=== PATIENT | female | born 1960 | race Caucasian/White ===

== ENCOUNTER 2017-11-11 22:37 | Day surgery (SDC) | payer MEDICAID, OTHER ==
[~2017-11-11] VITALS: Ht 170.2 cm; Wt 90.3 kg
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
--- OUTSIDE RECORDS SUMMARY | 2017-11-11 22:43 | XMS REPORT | Continuity of Care Document ---
Author Author [facility] Organization [facility] Address Unknown Phone Unavailable Allergies There is no data. Medications Medication Packaging Start Date Stop Date Route Dosage Sig metoprolol tartrate Tablet 2016 oral 1 tablet aspirin tablet,delayed release (DR/EC) 02/09/2017 oral 1 tablet Problems Date Dx Coded Attending Type Code Diagnosis Diagnosed By 02/18/2017 ROMERO BARTLETT D638 Anemia in other chronic diseases classified elsewhere 02/18/2017 ROMERO BARTLETT E119 Type 2 diabetes mellitus without complications 02/18/2017 ROMERO BARTLETT E8342 Hypomagnesemia 02/18/2017 ROMERO BARTLETT E876 Hypokalemia 02/18/2017 ROMERO BARTLETT [id number] Nicotine dependence, unspecified, in remission 02/18/2017 ROMERO BARTLETT G8929 Other chronic pain 02/18/2017 ROMERO BARTLETT I119 Hypertensive heart disease without heart failure 02/18/2017 ROMERO BARTLETT I214 Non -ST elevation (NSTEMI) myocardial infarction 02/18/2017 ROMERO BARTLETT 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 02/18/2017 ROMERO BARTLETT J449 Chronic obstructive pulmonary disease, unspecified 02/18/2017 ROMERO BARTLETT K219 Gastro-esophageal reflux disease without esophagitis 02/18/2017 ROMERO BARTLETT R079 Chest pain, unspecified 02/18/2017 ROMERO BARTLETT 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 02/18/2017 ROMERO BARTLETT [id number] Other alf (current) drug therapy 02/18/2017 ROMERO BARTLETT Z8674 Personal history of sudden cardiac arrest 02/18/2017 ROMERO BARTLETT Z9119 Patient's noncompliance w oth medical treatment and regimen 02/18/2017 ROMERO BARTLETT Z951 Presence of aortocoronary bypass graft 02/18/2017 ROMERO BARTLETT Z955 Presence of coronary angioplasty implant and graft Procedures Code Description Performed By Performed On [id number] 02/09/2017 Results Test Result Range CBC WITH PLATELET AND DIFFERENTIAL - 02/06/17 13:40 SEGS 64.1 % NRG *BASOPHILS 0.2 % NRG *EOSINOPHILS 2.4 % NRG AUTOMATED DIFF PERFORMED NRG *LYMPHOCYTES 26.3 % NRG *MONOCYTES 7.0 % NRG *ABSOLUTE BASOPHILS 0.00 10*3/uL 0.00-0.20 *ABSOLUTE EOSINOPHILS 0.20 10*3/uL 0.00-0.50 *ABSOLUTE LYMPHOCYTES 1.70 10*3/uL 1.00-3.00 *ABSOLUTE MONOCYTES 0.40 10*3/uL 0.30-1.00 *ABSOLUTE NEUTROPHILS 4.10 10*3/uL 1.80-7.80 MPV 8.5 fL 7.4-10.4 PLATELETS 235 10*3/uL 159-386 WBC 6.4 10*3/uL 3.6-11.2 RBC 3.59 3.63-4.92 HEMOGLOBIN 10.2 11.0-14.3 HEMATOCRIT 30.7 % 31.2-41.9 MCV 85.6 fL 79.0-98.0 MCH 28.4 pg 27.0-33.0 MCHC 33.2 32.0-36.0 RDW 17.8 % 12.3-17.0 RDWSD 52.9 37.1-47.8 COMPREHENSIVE METABOLIC PANEL - 02/06/17 13:40 BILIFUBIN TOTAL 0.30 0.20-1.00 TOTAL PROTEIN 7.1 6.4-8.2 ALBUMIN 3.0 3.4-5.0 *GLOBULIN 4.1 2.3-3.5 *A/G RATIO 0.7 1.5-2.2 ALK PHOS 118 U/L 46-116 ALT (SGPT) 13 U/L 16-63 AST (SGOT) 14 U/L 15-37 MAGNESIUM - 02/06/17 13:40 MAGNESIUM 1.7 1.8-2.4 TROPONIN-I - 02/06/17 13:40 TROPONIN-I 0.172 ng/mL 0.000-0.056 LIPASE - 02/06/17 13:40 LIPASE 135 U/L 73-393 GFR ESTIMATION - 02/06/17 13:40 *GFR EST NON AFR CHINESE 60 mL/min NRG *GRFA EST AFR AMER 70 mL/min NRG BNP - 02/06/17 13:40 B-TYPE NATRIURETIC PROTEIN 36 pg/mL 1-100 D-DIMER - 02/06/17 13:40 D-DIMER 0.53 mg{FEU}/L 0.00-0.50 PROTHROMBIN TIME - 02/06/17 13:40 *INR 1.00 0.90-1.10 *PROTHROMBIN TIME 10.7 s 9.4-11.5 PARTIAL THROMBOPLASTIN TIME - 02/06/17 13:40 PARTIAL THROMBOPLASTIN TIME 26.4 s 23.0-31.0 CK - 02/06/17 13:40 CK 94 U/L 26-192 GLUCOSE, METER - 02/06/17 16:45 GLUCOSE, METER 76 65-99 GLUCOSE, METER - 02/06/17 20:27 GLUCOSE, METER 138 65-99 PARTIAL THROMBOPLASTIN TIME - 02/06/17 21:03 PARTIAL THROMBOPLASTIN TIME 63.5 s 23.0-31.0 TROPONIN-I - 02/06/17 21:10 TROPONIN-I 0.176 ng/mL 0.000-0.056 CBC WITH PLATELET NO DIFFERENTIAL - 02/07/17 01:51 MPV 8.8 fL 7.4-10.4 PLATELETS 217 10*3/uL 159-386 WBC 5.9 10*3/uL 3.6-11.2 RBC 3.51 3.63-4.92 HEMOGLOBIN 9.9 11.0-14.3 HEMATOCRIT 30.6 % 31.2-41.9 MCV 87.1 fL 79.0-98.0 MCH 28.1 pg 27.0-33.0 MCHC 32.3 32.0-36.0 RDW 18.2 % 12.3-17.0 RDWSD 56.0 37.1-47.8 PARTIAL THROMBOPLASTIN TIME - 02/07/17 01:51 PARTIAL THROMBOPLASTIN TIME 40.6 s 23.0-31.0 HEMOGLOBIN A1C - 02/07/17 01:51 HEMOGLOBIN A1C 7.2 % 4.5-6.2 EST AVG. GLUCOSE - 02/07/17 01:51 EST AVG. GLUCOSE 159.9 g/dL NRG TROPONIN-I - 02/07/17 04:20 TROPONIN-I 0.205 ng/mL 0.000-0.056 LIPID PANEL W/ LDL DIRECT REFLEX - 02/07/17 04:20 TRIGLYCERIDES 116 0-149 CHOLESTEROL 155 50-199 HDL CHOLESTEROL 37 40-60 *LDL (CALCULATED) CHOL 95 0-99 BASIC METABOLIC PANEL - 02/07/17 04:20 SODIUM 138 mmol/L 136-145 POTASSIUM 3.7 mmol/L 3.5-5.1 CHLORIDE 100 mmol/L 98-107 TCO2 28.9 mmol/L 21.0-32.0 *ANION GAP 9.1 mmol/L 8.0-16.0 BUN 4 7-18 CREATININE 1.04 0.55-1.02 *BUN/CREATININE RATIO 3.8 9.1-17.0 GLUCOSE 118 65-99 CALCIUM 8.9 8.5-10.1 MAGNESIUM - 02/07/17 04:20 MAGNESIUM 1.7 1.8-2.4 GFR ESTIMATION - 02/07/17 04:20 *GFR EST NON AFR CHINESE 59 mL/min NRG *GRFA EST AFR AMER 69 mL/min NRG PARTIAL THROMBOPLASTIN TIME - 02/07/17 07:23 PARTIAL THROMBOPLASTIN TIME 68.6 s 23.0-31.0 TROPONIN-I - 02/07/17 07:23 TROPONIN-I 0.184 ng/mL 0.000-0.056 GLUCOSE, METER - 02/07/17 08:16 GLUCOSE, METER 137 65-99 GLUCOSE, METER - 02/07/17 16:51 GLUCOSE, METER 113 65-99 GLUCOSE, METER - 02/07/17 20:24 GLUCOSE, METER 141 65-99 CBC WITH PLATELET AND DIFFERENTIAL - 02/08/17 05:03 SEGS 48.1 % NRG *BASOPHILS 0.5 % NRG *EOSINOPHILS 4.2 % NRG AUTOMATED DIFF PERFORMED NRG *LYMPHOCYTES 40.3 % NRG *MONOCYTES 6.9 % NRG *ABSOLUTE BASOPHILS 0.00 10*3/uL 0.00-0.20 *ABSOLUTE EOSINOPHILS 0.20 10*3/uL 0.00-0.50 *ABSOLUTE LYMPHOCYTES 2.40 10*3/uL 1.00-3.00 *ABSOLUTE MONOCYTES 0.40 10*3/uL 0.30-1.00 *ABSOLUTE NEUTROPHILS 2.80 10*3/uL 1.80-7.80 MPV 8.6 fL 7.4-10.4 PLATELETS 240 10*3/uL 159-386 WBC 5.8 10*3/uL 3.6-11.2 RBC 3.26 3.63-4.92 HEMOGLOBIN 9.2 11.0-14.3 HEMATOCRIT 28.2 % 31.2-41.9 MCV 86.6 fL 79.0-98.0 MCH 28.4 pg 27.0-33.0 MCHC 32.8 32.0-36.0 RDW 18.3 % 12.3-17.0 RDWSD 55.6 37.1-47.8 MAGNESIUM - 02/08/17 05:03 MAGNESIUM 1.8 1.8-2.4 RENAL FUNCTION PANEL - 02/08/17 05:03 SODIUM 139 mmol/L 136-145 POTASSIUM 3.3 mmol/L 3.5-5.1 CHLORIDE 102 mmol/L 98-107 TCO2 28.4 mmol/L 21.0-32.0 *ANION GAP 8.6 mmol/L 8.0-16.0 BUN 5 7-18 CREATININE 1.02 0.55-1.02 *BUN/CREATININE RATIO 4.9 9.1-17.0 GLUCOSE 134 65-99 CALCIUM 8.9 8.5-10.1 ALBUMIN 2.7 3.4-5.0 PHOSPHORUS 4.2 2.6-4.7 TROPONIN-I - 02/08/17 05:03 TROPONIN-I 0.128 ng/mL 0.000-0.056 CK - 02/08/17 05:03 CK 54 U/L 26-192 GFR ESTIMATION - 02/08/17 05:03 *GFR EST NON AFR CHINESE 61 mL/min NRG *GRFA EST AFR AMER 70 mL/min NRG PARTIAL THROMBOPLASTIN TIME - 02/08/17 05:04 PARTIAL THROMBOPLASTIN TIME 50.9 s 23.0-31.0 GLUCOSE, METER - 02/08/17 07:33 GLUCOSE, METER 141 65-99 GLUCOSE, METER - 02/08/17 11:40 GLUCOSE, METER 138 65-99 GLUCOSE, METER - 02/08/17 16:30 GLUCOSE, METER 122 65-99 GLUCOSE, METER - 02/08/17 20:19 GLUCOSE, METER 145 65-99 PARTIAL THROMBOPLASTIN TIME - 02/09/17 05:11 PARTIAL THROMBOPLASTIN TIME 46.5 s 23.0-31.0 BASIC METABOLIC PANEL - 02/09/17 05:11 SODIUM 141 mmol/L 136-145 POTASSIUM 3.8 mmol/L 3.5-5.1 CHLORIDE 105 mmol/L 98-107 TCO2 26.0 mmol/L 21.0-32.0 *ANION GAP 10.0 mmol/L 8.0-16.0 BUN 8 7-18 CREATININE 1.14 0.55-1.02 *BUN/CREATININE RATIO 7.0 9.1-17.0 GLUCOSE 87 65-99 CALCIUM 9.4 8.5-10.1 GFR ESTIMATION - 02/09/17 05:11 *GFR EST NON AFR CHINESE 53 mL/min NRG *GRFA EST AFR AMER 62 mL/min NRG GLUCOSE, METER - 02/09/17 07:52 GLUCOSE, METER 112 65-99 ACTIVATED CLOTTING TIME - 02/09/17 08:36 ACTIVATED CLOTTING TIME 122 s NRG GLUCOSE, METER - 02/09/17 11:38 GLUCOSE, METER 98 65-99 Encounters ACCT No. Visit Date/Time Discharge Status Pt. Type Provider Facility Loc./Unit Complaint [id number] 02/06/2017 15:40:00 02/09/2017 15:41:55 DIS Outpatient ROMERO BARTLETT <PV2.3.2>Chest pain, unspecified</PV2.3.2><PV2.3.2>CHEST PAIN</ PV2.3.2><PV2.3.2>Non-ST elevation (NSTEMI) myocardial infarction</PV2.3.2>< PV2.3.2>Athscl heart disease of [place] coronary artery w/o ang pctrs</PV2.3.2>< PV2.3.2>Presence of aortocoronary bypass graft</PV2.3.2><PV2.3.2>Presence of coronary angioplasty implant and graft</PV2.3.2><PV2.3.2>Hypertensive heart disease without heart failure</PV2.3.2><PV2.3.2>Type 2 diabetes mellitus without complications</PV2.3.2><PV2.3.2>Chronic obstructive pulmonary disease, unspecified</PV2.3.2><PV2.3.2>Nicotine dependence, unspecified, in remission</ PV2.3.2><PV2.3.2>Patient's noncompliance w ot medical treatment and regimen< /PV2.3.2><PV2.3.2>Other chronic pain</PV2.3.2><PV2.3.2>Personal history of sudden cardiac arrest</PV2.3.2><PV2.3.2>Gastro-esophageal reflux disease without esophagitis</PV2.3.2><PV2.3.2>Anemia in other chronic diseases classified elsewhere</PV2.3.2><PV2.3.2>Hypokalemia</PV2.3.2><PV2.3.2> Hypomagnesemia</PV2.3.2><PV2.3.2>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
[2017-11-11] MEDS ORDERED: CARB100C2 PO (22:51)
[2017-11-11] MEDS ORDERED: GLIP5TAB13 PO (22:51)
[2017-11-11] MEDS ORDERED: CLOP75TA69 PO (22:51)
[2017-11-11] MEDS ORDERED: FLEXERAL (22:51)
[2017-11-11] MEDS ORDERED: PROMETHAZINE INJ 25 MG/ML (PHENERGAN) AMP IVP STA (22:54)
[2017-11-11] MEDS ORDERED: morphine INJ 10 MG/ML 1ML (SYR OR VIAL) IVP STA (22:54)
[2017-11-11 22:59] LABS: BASOPHILS % (AUTO) 0 % (0-10); EOSINOPHILS # (AUTO) 0.3 10^3/uL (0.0-0.3); EOSINOPHILS % (AUTO) 4 % (0-10); HEMATOCRIT 35 % (35-52); HEMOGLOBIN 12.1 G/DL (11.5-16.0); LYMPHOCYTES # (AUTO) 2.5 X 10^3 (1.0-4.0); LYMPHOCYTES % (AUTO) 34 % (12-44); MEAN CORPUSCULAR HEMOGLOBIN 33 PG (25-34); MEAN CORPUSCULAR HGB CONC 34 G/DL (32-36); MEAN CORPUSCULAR VOLUME 95 FL (80-99); MEAN PLATELET VOLUME 9.9 FL (7.4-10.4); MONOCYTES # (AUTO) 0.6 X 10^3 (0.0-1.0); MONOCYTES % (AUTO) 8 % (0-12); NEUTROPHILS # (AUTO) 4.1 X 10^3 (1.8-7.8); NEUTROPHILS % (AUTO) 55 % (42-75); PLATELET COUNT 238 10^3/uL (130-400); RED BLOOD COUNT 3.72 10^6/uL (4.35-5.85); RED CELL DISTRIBUTION WIDTH 14.7 % (10.0-14.5); WHITE BLOOD COUNT 7.5 10^3/uL (4.3-11.0)
[2017-11-11 23:11] LABS: INR 0.9 (0.8-1.4); PROTHROMBIN TIME PATIENT 12.2 SEC (12.2-14.7)
[2017-11-11 23:20] LABS: ALANINE AMINOTRANSFERASE 21 U/L (0-55); ALBUMIN 3.5 GM/DL (3.2-4.5); ALKALINE PHOSPHATASE 121 U/L (40-136); BILIRUBIN,TOTAL 0.2 MG/DL (0.1-1.0); BUN/CREATININE RATIO 7; CARBON DIOXIDE 22 MMOL/L (21-32); CHLORIDE 107 MMOL/L (98-107); CREATININE SERUM 0.83 MG/DL (0.60-1.30); GFR ESTIMATED > 60; GLUCOSE 144 MG/DL (70-105); MAGNESIUM 2.1 MG/DL (1.8-2.4); POTASSIUM 3.6 MMOL/L (3.6-5.0); SODIUM 138 MMOL/L (135-145); TOTAL PROTEIN 6.1 GM/DL (6.4-8.2)
[2017-11-11] MEDS ORDERED: HYDROmorphone 2 MG/ML VIAL (DILAUDID) IV STA (23:36)
--- NOTE | 2017-11-11 23:53 | ED Chest Pain ---
General Chief Complaint: Chest Pain Stated Complaint: CP X 4 DAYS, HX STENTS PLACED/OPEN HEART SURG Nursing Triage Note: chest pain x4 days Nursing Sepsis Screen: No Definite Risk Source: patient Exam Limitations: no limitations History of Present Illness Date Seen by Provider: Nov 11, 2017 Time Seen by Provider: 22:44 Initial Comments Here with severe central chest pain that has been going on for 4 days intermittently but persistent tonight. She apparently was on her way to [facility] to see her daughter and came here do to pain being so significant on her [place]. Normally seen in [facility] and [place] for her chest problems. States this feels like previous heart attacks. Reports that she's had 16 stents and triple bypass and that this is how the pain typically is. She has been using her nitroglycerin with some improvement over the last 4 days but that did not work tonight. She reports that she has a significant headache tonight due to nitroglycerin. Reports nausea but no vomiting and no central chest pain that radiates to the left arm and left leg. Timing/Duration: 3-4 days Severity/Quality: moderate, severe Location: central Radiation: arms Activities at Onset: none Prior CP/Workup: cardiac cath, heart attack Modifying Factors: improves with nitroglycerin ASA po UPPER AND BOTTOM LACER HAND: No NTG SL UPPER AND BOTTOM LACER HAND: Yes Associated Symptoms: abdominal pain, diaphoresis, edema, fatigue, nausea/ vomiting; No weakness Allergies and Home Medications Allergies Coded Allergies: Sulfa (Sulfonamide Antibiotics) (Verified Allergy, Unknown, 11/11/17) haloperidol (Verified Allergy, Unknown, 11/11/17) ketorolac (Verified Allergy, Unknown, 11/11/17) metoclopramide (Verified Allergy, Unknown, 11/11/17) ondansetron (Verified Allergy, Unknown, 11/11/17) prochlorperazine (Verified Allergy, Unknown, 11/11/17) sumatriptan (Verified Allergy, Unknown, 11/11/17) Home Medications Clopidogrel Bisulfate 75 Mg Tablet, Unknown Dose PO DAILY, (Reported) Patient Home Medication List Home Medication List Reviewed: Yes Review of Systems Review of Systems Constitutional: see HPI, chills, fever EENTM: No Symptoms Reported Respiratory: No Symptoms Reported Cardiovascular: See HPI, Chest Pain, Edema Gastrointestinal: See HPI Genitourinary: No Symptoms Reported Musculoskeletal: see HPI, muscle pain; No muscle weakness Skin: no symptoms reported Psychiatric/Neurological: Anxiety, Headache All Other Systems Reviewed Negative Unless Noted: Yes Past Ktemqkz-Lejjqm-Tclaor Hx Past Med/Social Hx: Reviewed Nursing Past Med/Soc Hx Patient Social History Alcohol Use: Denies Use Recreational Drug Use: No Smoking Status: Current Someday Smoker Type Used: Cigarettes 2nd Hand Smoke Exposure: Yes Recent Foreign Travel: No Contact w/Someone Who Travel: No Recent Infectious Disease Expo: No Recent Hopitalizations: No Immunizations Up To Date Tetanus Booster (TDap): Unknown Seasonal Allergies Seasonal Allergies: No Past Medical History Surgeries: Yes CABG, Gallbladder, Hysterectomy Respiratory: Yes Asthma, COPD Cardiac: Yes Heart Attack, High Cholesterol, Hypertension Neurological: Yes Headaches /Migraines 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 oz. 77.255730uk; BMI Method:Stated General Appearance: WD/WN, Moderate Distress HEENT: PERRL/EOMI, Pharynx Normal Neck: Non Tender, Supple Respiratory: Lungs Clear, Normal Breath Sounds Cardiovascular: Regular Rate, Rhythm, No Murmur Gastrointestinal: Non Tender, Soft Extremity: Normal Range of Motion, Non Tender Neurologic/Psychiatric: Alert, Oriented x3 Skin: Normal Color, Warm/Dry Progress/Results/Core Measures Results/Orders Lab Results Laboratory Tests Test 11/11/17 22:45 Range/Units White Blood Count 7.5 4.3-11.0 10^3/uL Red Blood Count 3.72 L 4.35-5.85 10^6/uL Hemoglobin 12.1 11.5-16.0 G/DL Hematocrit 35 35-52 % Mean Corpuscular Volume 95 80-99 FL Mean Corpuscular Hemoglobin 33 25-34 PG Mean Corpuscular Hemoglobin Concent 34 32-36 G/DL Red Cell Distribution Width 14.7 H 10.0-14.5 % Platelet Count 238 130-400 10^3/uL Mean Platelet Volume 9.9 7.4-10.4 FL Neutrophils (%) (Auto) 55 42-75 % Lymphocytes (%) (Auto) 34 12-44 % Monocytes (%) (Auto) 8 0-12 % Eosinophils (%) (Auto) 4 0-10 % Basophils (%) (Auto) 0 0-10 % Neutrophils # (Auto) 4.1 1.8-7.8 X 10^3 Lymphocytes # (Auto) 2.5 1.0-4.0 X 10^3 Monocytes # (Auto) 0.6 0.0-1.0 X 10^3 Eosinophils # (Auto) 0.3 0.0-0.3 10^3/uL Basophils # (Auto) 0.0 0.0-0.1 10^3/uL Prothrombin Time 12.2 12.2-14.7 SEC INR Comment 0.9 0.8-1.4 Activated Partial Thromboplast Time 32 24-35 SEC Sodium Level 138 135-145 MMOL/L Potassium Level 3.6 3.6-5.0 MMOL/L Chloride Level 107 98-107 MMOL/L Carbon Dioxide Level 22 21-32 MMOL/L Anion Gap 9 5-14 MMOL/L Blood Urea Nitrogen 6 L 7-18 MG/DL Creatinine 0.83 0.60-1.30 MG/DL Estimat Glomerular Filtration Rate > 60 BUN/Creatinine Ratio 7 Glucose Level 144 H 70-105 MG/DL Calcium Level 9.0 8.5-10.1 MG/DL Corrected Calcium 9.4 8.5-10.1 MG/DL Magnesium Level 2.1 1.8-2.4 MG/DL Total Bilirubin 0.2 0.1-1.0 MG/DL Aspartate Amino Transf (AST/SGOT) 23 5-34 U/L Alanine Aminotransferase (ALT/SGPT) 21 0-55 U/L Alkaline Phosphatase 121 40-136 U/L Myoglobin 28.0 10.0-92.0 NG/ML Troponin I < 0.30 <0.30 NG/ML Total Protein 6.1 L 6.4-8.2 GM/DL Albumin 3.5 3.2-4.5 GM/DL My Orders Orders - JOVI VELASQUEZ MD Cbc With Automated Diff (11/11/17 22:44) Magnesium (11/11/17 22:44) Chest 1 View, Ap/Pa Only (11/11/17 22:44) Ekg Tracing (11/11/17 22:44) Cardiac Profile 1 (11/11/17 22:44) Comprehensive Metabolic Panel (11/11/17 22:44) Myoglobin Serum (11/11/17 22:44) Protime With Inr (11/11/17 22:44) Partial Thromboplastin Time (11/11/17 22:44) O2 (11/11/17 22:44) Monitor-Rhythm Ecg Trace Only (11/11/17 22:44) Lipid Panel (11/12/17 06:00) Saline Lock/Iv-Start (11/11/17 22:44) Morphine Injection (Morphine Injection (11/11/17 22:54) Promethazine Injection (Phenergan Injec (11/11/17 22:54) Hydromorphone Injection (Dilaudid Inject (11/11/17 23:36) Morphine Injection (Morphine Injection (11/12/17 00:24) Aspirin Chewable Tablet (Baby Aspirin Ch (11/12/17 00:28) Vital Signs/I&O 11/11/17 11/11/17 11/11/17 22:45 22:45 22:45 Temp 98.0 Pulse 85 Resp 25 B/P (MAP) 155/89 (111) Pulse Ox 100 100 O2 Delivery Nasal Cannula Nasal Cannula Nasal Cannula O2 Flow Rate 2.0 2.0 2.00 Blood Pressure Mean: 111 Progress Progress Note : Progress Note Seen and evaluated. IV, labs, EKG and chest x-ray ordered. Morphine 5 mg IV and Phenergan 25 mg IV ordered. This did not help her pain. Dilaudid 1 mg IV ordered. 2355: Pain still not improved. Labs do not show any significant findings. Patient will likely need administration due to persistent history. Review of outside medications reveals that the patient does take hydrocodone 10/ 325 for times daily and has for the past couple of months. Monitor patient. 0020: Patient still with pain. Given her history, patient will require admission. I did discuss the case with Dr. Mancuso and he agrees to see her in consult. 0025: I did discuss the case with Dr. TORRE and he accepts patient for admission. We have ordered morphine 5 mg IV for pain. We have reviewed her allergies and it appears that she can take aspirin so we will give that to her now in dose of 324 mg by mouth. Admit, observation status. Patient and family agree with plan. Initial ECG Impression Date: Nov 11, 2017 Initial ECG Impression Time: 22:45 Initial ECG Rate: 80 Initial ECG Rhythm: Normal Sinus Comment Sinus rhythm with right bundle branch block. No evidence of ST elevation GA. Normal axis. No previous available for comparison. Interpreted by me. Diagnostic Imaging Diagonstic Imaging: Xray Plain Films/CT/US/NM/MRI: chest Comments No acute findings on portable 1 view x-ray Reviewed: Reviewed by Me Departure Communication (Admissions) Time/Spoke to Admitting Phy: 00:20 Impression Primary Impression: Chest pain Qualified Codes: R07.9 - Chest pain, unspecified Disposition: ADMITTED INPATIENT Condition: Stable Admissions Decision to Admit Reason: Admit from ER (General) Decision to Admit/Date: Nov 12, 2017 Time/Decision to Admit Time: 00:20 Departure-Patient Inst. Referrals: NO,LOCAL PHYSICIAN (PCP/Family) Primary Care Physician JOVI VELASQUEZ MD Nov 11, 2017 23:53
[2017-11-12] VITALS (27 sets, daily range): BP systolic 77–157; BP diastolic 56–107
[2017-11-12] MEDS ORDERED: morphine INJ 10 MG/ML 1ML (SYR OR VIAL) IVP STA (00:24)
[2017-11-12] MEDS ORDERED: ASPIRIN 81 MG CHEW (CHILDREN'S ASA) PO STA (00:28)
--- OUTSIDE RECORDS SUMMARY | 2017-11-12 00:45 | XMS REPORT | Continuity of Care Document ---
Author Author [facility] Organization [facility] Address Unknown Phone Unavailable Allergies There is [...] ROMERO BARTLETT E876 Hypokalemia 02/18/2017 ROMERO BARTLETT [id number] Nicotine dependence, unspecified, in remission 02/18/2017 ROMERO BARTLETT [id number] Other chronic pain 02/18/2017 ROMERO BARTLETT I119 Hypertensive heart disease without heart failure 02/18/2017 ROMERO BARTLETT I214 Non -ST elevation (NSTEMI) myocardial infarction 02/18/2017 ROMERO BARTLETT I2510 Athscl heart disease of [place] coronary artery w/o ang pctrs 02/18/2017 ROMERO BARTLETT J449 Chronic obstructive pulmonary disease, unspecified 02/18/2017 ROMERO BARTLETT K219 Gastro-esophageal reflux disease without esophagitis 02/18/2017 ROMERO BARTLETT R079 Chest pain, unspecified 02/18/2017 ROMERO BARTLETT [id number] long term care social worker (current) use of antithrombotics/antiplatelets 02/18/2017 ROMERO BARTLETT [id number] Other long-term (current) drug therapy 02/18/2017 ROMERO BARTLETT Z8674 Personal history of sudden cardiac arrest 02/18/2017 ROMERO BARTLETT Z9119 Patient's noncompliance w oth medical treatment and regimen 02/18/2017 ROMERO BARTLETT Z951 Presence of aortocoronary bypass graft 02/18/2017 ROMERO BARTLETT Z955 Presence of coronary angioplasty implant and graft Procedures Code Description Performed By Performed On [id number] 02/09/2017 Results Test Result Range CBC WITH [...] - 02/06/17 13:40 *GFR EST NON AFR [place] 60 mL/min NRG *GRFA EST AFR AMER [...] - 02/07/17 04:20 *GFR EST NON AFR [place] 59 mL/min NRG *GRFA EST AFR AMER [...] - 02/08/17 05:03 *GFR EST NON AFR [place] 61 mL/min NRG *GRFA EST AFR AMER [...] *ANION GAP 10.0 mmol/L 8.0-16.0 BUN 8 718 CREATININE 1.14 0.55-1.02 *BUN/CREATININE RATIO 7.0 9.1-17.0 GLUCOSE 87 65-99 CALCIUM 9.4 8.5-10.1 GFR ESTIMATION - 02/09/17 05:11 *GFR EST NON AFR [place] 53 mL/min NRG *GRFA EST AFR AMER 62 mL/min NRG GLUCOSE, METER - 02/09/17 07:52 GLUCOSE, METER 112 65-99 ACTIVATED CLOTTING TIME - 02/09/17 08:36 ACTIVATED CLOTTING TIME 122 s NRG GLUCOSE, METER - 02/09/17 11:38 GLUCOSE, METER 98 65-99 Complete blood count (CBC) with automated white blood cell (WBC) differential - 11/11/17 22:45 Blood leukocytes automated count (number/volume) 7.5 10*3/uL 4.3-11.0 Blood erythrocytes automated count (number/volume) 3.72 10*6/uL 4.35-5.85 Venous blood hemoglobin measurement (mass/volume) 12.1 g/dL 11.5-16.0 Blood hematocrit (volume fraction) 35 % 35-52 Automated erythrocyte mean corpuscular volume 95 [foz_us] 80-99 Automated erythrocyte mean corpuscular hemoglobin (mass per erythrocyte) 33 pg 25-34 Automated erythrocyte mean corpuscular hemoglobin concentration measurement ( mass/volume) 34 g/dL 32-36 Automated erythrocyte distribution width ratio 14.7 % 10.0-14.5 Automated blood platelet count (count/volume) 238 10*3/uL 130-400 Automated blood platelet mean volume measurement 9.9 [foz_us] 7.4-10.4 Automated blood neutrophils/100 leukocytes 55 % 42-75 Automated blood lymphocytes/100 leukocytes 34 % 12-44 Blood monocytes/100 leukocytes 8 % 0-12 Automated blood eosinophils/100 leukocytes 4 % 0-10 Automated blood basophils/100 leukocytes 0 % 0-10 Blood neutrophils automated count (number/volume) 4.1 10*3 1.8-7.8 Blood lymphocytes automated count (number/volume) 2.5 10*3 1.0-4.0 Blood monocytes automated count (number/volume) 0.6 10*3 0.0-1.0 Automated eosinophil count 0.3 10*3/uL 0.0-0.3 Automated blood basophil count (count/volume) 0.0 10*3/uL 0.0-0.1 PT panel in platelet poor plasma by coagulation assay - 11/11/17 22:45 Prothrombin time (PT) in platelet poor plasma by coagulation assay 12.2 s 12.2-14.7 INR in platelet poor plasma or blood by coagulation assay 0.9 0.8-1.4 Activated partial thromboplastin time (aPTT) in platelet poor plasma bycoagulation assay - 11/11/17 22:45 Activated partial thromboplastin time (aPTT) in platelet poor plasma bycoagulation assay 32 s 24-35 Comprehensive metabolic panel - 11/11/17 22:45 Serum or plasma sodium measurement (moles/volume) 138 mmol/L 135-145 Serum or plasma potassium measurement (moles/volume) 3.6 mmol/L 3.6-5.0 Serum or plasma chloride measurement (moles/volume) 107 mmol/L 98-107 Carbon dioxide 22 mmol/L 21-32 Serum or plasma anion gap determination (moles/volume) 9 mmol/L 5-14 Serum or plasma urea nitrogen measurement (mass/volume) 6 mg/dL 7-18 Serum or plasma creatinine measurement (mass/volume) 0.83 mg/dL 0.60-1.30 Serum or plasma urea nitrogen/creatinine mass ratio 7 NRG Serum or plasma creatinine measurement with calculation of estimated glomerular filtration rate > NRG Serum or plasma glucose measurement (mass/volume) 144 mg/dL 70-105 Serum or plasma calcium measurement (mass/volume) 9.0 mg/dL 8.5-10.1 Serum or plasma total bilirubin measurement (mass/volume) 0.2 mg/dL 0.1-1.0 Serum or plasma alkaline phosphatase measurement (enzymatic activity/volume) 121 U/L 40-136 Serum or plasma aspartate aminotransferase measurement (enzymatic activity/ volume) 23 U/L 5-34 Serum or plasma alanine aminotransferase measurement (enzymatic activity/volume ) 21 U/L 0-55 Serum or plasma protein measurement (mass/volume) 6.1 g/dL 6.4-8.2 Serum or plasma albumin measurement (mass/volume) 3.5 g/dL 3.2-4.5 CALCIUM CORRECTED 9.4 mg/dL 8.5-10.1 Magnesium - 11/11/17 22:45 Magnesium 2.1 mg/dL 1.8-2.4 Serum or plasma troponin i.cardiac measurement (mass/volume) - 11/11/17 22:45 Serum or plasma troponin i.cardiac measurement (mass/volume) < ng/ mL <0.30 Myoglobin, serum - 11/11/17 22:45 Myoglobin, serum 28.0 ng/mL 10.0-92.0 Encounters ACCT No. Visit Date/Time Discharge Status Pt. Type Provider Facility Loc./Unit Complaint [id number] 02/06/2017 15:40:00 02/09/2017 15:41:55 DIS Outpatient ROMERO BARTLETT <PV2.3.2>Chest pain, unspecified</PV2.3.2><PV2.3.2>CHEST PAIN</ PV2.3.2><PV2.3.2>Non-ST elevation (NSTEMI) myocardial infarction</PV2.3.2>< PV2.3.2>Athscl heart disease of [place] coronary artery w/o ang pctrs</PV2.3.2>< PV2.3.2>Presence of aortocoronary bypass graft</PV2.3.2><PV2.3.2>Presence of coronary angioplasty implant and graft</PV2.3.2><PV2.3.2>Hypertensive heart disease without heart failure</PV2.3.2><PV2.3.2>Type 2 diabetes mellitus without complications</PV2.3.2><PV2.3.2>Chronic obstructive pulmonary disease, unspecified</PV2.3.2><PV2.3.2>Nicotine dependence, unspecified, in remission</ PV2.3.2><PV2.3.2>Patient's noncompliance w oth medical treatment and regimen< /PV2.3.2><PV2.3.2>Other chronic pain</PV2.3.2><PV2.3.2>Personal history of sudden cardiac arrest</PV2.3.2><PV2.3.2>Gastro-esophageal reflux disease without esophagitis</PV2.3.2><PV2.3.2>Anemia in other chronic diseases classified elsewhere</PV2.3.2><PV2.3.2>Hypokalemia</PV2.3.2><PV2.3.2> Hypomagnesemia</PV2.3.2><PV2.3.2>Other exterminator termite (current) drug therapy</PV2.3.2 ><PV2.3.2>long term care social worker (current) use of antithrombotics/antiplatelets</PV2.3.2> [id number] 11/11/2017 23:01:00 Document Registration
[2017-11-12] MEDS ORDERED: PROMETHAZINE INJ 25 MG/ML (PHENERGAN) AMP IV PRN (02:15)
[2017-11-12] MEDS ORDERED: RT-ALBUTEROL/IPRATROPIUM 3 ML (DUONEB) VIAL INH PRN (02:15)
[2017-11-12] MEDS ORDERED: NS IV 1000 ML 1,000 ML IV SCH ×2 (02:15→17:55)
[2017-11-12] MEDS ORDERED: CATHETER FLUSH 10 ML SYR IV PRN (02:30)
[2017-11-12] MEDS ORDERED: NITROGLYCERIN 0.4 MG SL TABS BTL 25'S SL PRN (02:30)
[2017-11-12] MEDS: morphine INJ 10 MG/ML 1ML (SYR OR VIAL) IV PRN ×3 (02:33→08:22)
[2017-11-12] MEDS: CATHETER FLUSH 10 ML SYR IV SCH ×2 (04:30→14:00)
[2017-11-12 05:13] LABS: BASOPHILS % (AUTO) 1 % (0-10); EOSINOPHILS # (AUTO) 0.3 10^3/uL (0.0-0.3); EOSINOPHILS % (AUTO) 5 % (0-10); HEMATOCRIT 34 % (35-52); HEMOGLOBIN 11.5 G/DL (11.5-16.0); LYMPHOCYTES # (AUTO) 2.1 X 10^3 (1.0-4.0); LYMPHOCYTES % (AUTO) 39 % (12-44); MEAN CORPUSCULAR HEMOGLOBIN 33 PG (25-34); MEAN CORPUSCULAR HGB CONC 34 G/DL (32-36); MEAN CORPUSCULAR VOLUME 95 FL (80-99); MONOCYTES # (AUTO) 0.5 X 10^3 (0.0-1.0); MONOCYTES % (AUTO) 9 % (0-12); NEUTROPHILS # (AUTO) 2.6 X 10^3 (1.8-7.8); NEUTROPHILS % (AUTO) 47 % (42-75); PLATELET COUNT 203 10^3/uL (130-400); RED BLOOD COUNT 3.51 10^6/uL (4.35-5.85); RED CELL DISTRIBUTION WIDTH 14.3 % (10.0-14.5); WHITE BLOOD COUNT 5.5 10^3/uL (4.3-11.0)
[2017-11-12 05:41] LABS: ALANINE AMINOTRANSFERASE 23 U/L (0-55); ALBUMIN 3.3 GM/DL (3.2-4.5); ALKALINE PHOSPHATASE 121 U/L (40-136); BILIRUBIN,TOTAL 0.2 MG/DL (0.1-1.0); BUN/CREATININE RATIO 6; CALCIUM 8.8 MG/DL (8.5-10.1); CARBON DIOXIDE 22 MMOL/L (21-32); CHLORIDE 111 MMOL/L (98-107); CREATININE SERUM 0.78 MG/DL (0.60-1.30); GFR ESTIMATED > 60; GLUCOSE 119 MG/DL (70-105); SODIUM 141 MMOL/L (135-145); TOTAL PROTEIN 5.8 GM/DL (6.4-8.2)
[2017-11-12 05:42] LABS: CHOLESTEROL 224 MG/DL (< 200); HDL CHOLESTEROL 27 MG/DL (40-60); TRIGLYCERIDES 456 MG/DL (<150); VLDL CHOLESTEROL 91 MG/DL (5-40)
[2017-11-12] MEDS: inSUlin ASPART (NovoLOG) 1 UNIT/0.01 ML (CHARGE PER UNIT) SC SCH ×3 (05:46→14:48)
[2017-11-12] MEDS ORDERED: LORATADINE (CLARITIN) 10 MG TAB PO SCH (07:30)
--- NOTE | 2017-11-12 07:50 | History & Physical-Hospitalist ---
History of Present Illness HPI/Chief Complaint Pt is a 57yoCF with a PMH CAD s/p CABG, DM, COPD, and CHF who presented to ER with CC of chest pain. She is a very poor historian and is falling asleep in the middle of our conversation multiple times. She states her pain started 4 days ago and she decided to stop her as she was driving through town to visit her daughter out of town. She states her pain is in her chest and radiating down her left arm, up both sides of her neck down her back and down her left leg. She states her pain is a 10/10 but quickly falls asleep again after telling me that. She describes her chest pain as a heaviness that makes it hard to breath. She states she is allergic to the medicine for a stress test and has only been able to have caths in the past. Source: patient Date Seen 11/12/17 Time Seen by a Provider: 07:51 Attending Physician Dwight Fernandes MD PCP No,Local Physician Referring Physician Date of Admission Nov 12, 2017 at 00:28 Home Medications & Allergies Home Medications Reviewed patient Home Medication Reconciliation performed by pharmacy medication reconciliations biodiesel production technician and/or nursing. Patients Allergies have been reviewed. Allergies Allergies Coded Allergies Sulfa (Sulfonamide Antibiotics) (Verified Allergy, Unknown, 11/11/17) haloperidol (Verified Allergy, Unknown, 11/11/17) ketorolac (Verified Allergy, Unknown, 11/11/17) metoclopramide (Verified Allergy, Unknown, 11/11/17) ondansetron (Verified Allergy, Unknown, 11/11/17) prochlorperazine (Verified Allergy, Unknown, 11/11/17) sumatriptan (Verified Allergy, Unknown, 11/11/17) Past Vjzsezm-Xeqhza-Wzjxkd Hx Past Med/Social Hx: Reviewed Nursing Past Med/Soc Hx Patient Social History Alcohol Use: Rarely Uses Number of Drinks Today: 0 Recreational Drug Use: No Smoking Status: Current Everyday Smoker Cigaretts per day: 10 Type Used: Cigarettes 2nd Hand Smoke Exposure: Yes Physical Abuse Screen: No Sexual Abuse: No Recent Foreign Travel: No Contact w/other who traveled: No Recent Hopitalizations: No Recent Infectious Disease Expo: No Immunizations Up To Date Tetanus Booster (TDap): Unknown Pediatric: No Date of Pneumonia Vaccine: Nov 12, 2012 Seasonal Allergies Seasonal Allergies: Yes Past Medical History Surgeries: Abdominal, CABG, Coronary Stent, Gallbladder, Hysterectomy Respiratory: COPD Cardiac: Cardiomyopathy, Coronary Artery Disease, Heart Attack, High Cholesterol, Hypertension Neurological: Headaches /Migraines Hysterectomy Gastrointestinal: Gastroesophageal Reflux Musculoskeletal: Fibromyalgia, Chronic Back Pain Endocrine: Diabetes, Non-Insulin dep Psychosocial: Sleep Difficulties, Anxiety History of Blood Disorders: No Family History Reviewed Nursing Family Hx No Pertinent Family Hx Review of Systems Constitutional: No chills, No diaphoresis, No fever EENTM: no symptoms reported Respiratory: No cough, No dyspnea on exertion; short of breath; No wheezing Cardiovascular: chest pain, edema, Hx of Intervention; No palpitations Gastrointestinal: No abdominal pain; heartburn, nausea, vomiting Genitourinary: No dysuria, No frequency Musculoskeletal: back pain, joint pain, muscle pain Skin: no symptoms reported Psychiatric/Neurological: No Symptoms Reported Physical Exam Physical Exam Vital Signs Vital Signs - First Documented 11/12/17 01:47 FiO2 21 Capillary Refill : Less Than 3 Seconds Height, Weight, BMI Height: 5'7.00" Weight: 199lbs. 1.0oz. 90.390254ex; 31.2 BMI Method:Stated General Appearance: WD/WN, Chronically ill Respiratory: Lungs Clear, No Respiratory Distress Cardiovascular: Regular Rate, Rhythm, No Murmur Gastrointestinal: Normal Bowel Sounds, Soft Extremity: Normal Capillary Refill, No Calf Tenderness, No Pedal Edema Neurologic/Psychiatric: Alert, Other (oriented x3 but very drowsy) Skin: Normal Color, Warm/Dry Results Results/Procedures Labs Laboratory Tests 11/11/17 22:45 11/12/17 04:50 Patient resulted labs reviewed. Assessment/Plan Admission Diagnosis Chest pain Admission Status: Observation Diagnosis/Problems Diagnosis/Problems (1) Chest pain Status: Acute Assessment & Plan: Troponins negative x2 Monitor on telemetry Cardiology consulted, appreciate recs Qualifiers: Chest pain type: unspecified Qualified Codes: R07.9 - Chest pain, unspecified (2) CAD (coronary artery disease) Status: Chronic Assessment & Plan: Reports h/o of 16 stents and CABG x3 Follows with public works technician in [place] Will request records Qualifiers: Coronary Disease-Associated Artery/Lesion type: bypass graft [place] vs. transplanted heart: upper [place] heart Associated angina: with unspecified angina Qualified Codes: I25.709 - Atherosclerosis of coronary artery bypass graft(s), unspecified, with unspecified angina pectoris (3) COPD (chronic obstructive pulmonary disease) Status: Chronic Assessment & Plan: No signs of acute exacerbation MAT protocol Recommend smoking cessation Qualifiers: COPD type: unspecified COPD Qualified Codes: J44.9 - Chronic obstructive pulmonary disease, unspecified (4) Essential (primary) hypertension Assessment & Plan: Well controlled currently Trend (5) Non-insulin dependent type 2 diabetes mellitus Assessment & Plan: fasting blood sugar 119 this AM Trend SSI (6) Chronic narcotic use Assessment & Plan: Is on daily hydrocodone Currently receiving morphine for pain Resume home meds when able Clinical Quality Measures AMI/AHF: ASA po Prior to arrival: No DVT/VTE Risk/Contraindication: Risk Factor Score Per Nursin RFS Level Per Nursing on Admit: 4+=Very High ASH GIBBS MD Nov 12, 2017 07:50
--- NOTE | 2017-11-12 07:55 | Diagnostic Imaging Report ---
INDICATION: Chest pain. Portable upright AP view of the chest is obtained. There is no previous study available at this time for comparison. FINDINGS: Overall heart size within normal limits. Pulmonary vascularity is unremarkable. There is elevation of right hemidiaphragm. Surgical changes are noted in the mediastinum and left chest wall. IMPRESSION: No acute abnormality is identified. If older studies are available, comparison would be useful. Dictated by: Dictated on workstation # [id number]
[2017-11-12] MEDS ORDERED: RT-ALBUTEROL/IPRATROPIUM 3 ML (DUONEB) VIAL INH SCH (08:00)
[2017-11-12 08:27] LABS: BENZODIAZEPINES SCREEN URINE POSITIVE (NEGATIVE)
[2017-11-12 08:28] LABS: AMPHETAMINE SCREEN, URINE NEGATIVE (NEGATIVE); BARBITURATE SCREEN URINE NEGATIVE (NEGATIVE); CANNABINOID SCREEN, URINE NEGATIVE (NEGATIVE); COCAINE SCREEN URINE NEGATIVE (NEGATIVE); METHADONE STAT NEGATIVE (NEGATIVE); METHAMPHETAMINE SCREEN URINE S NEGATIVE (NEGATIVE); OPIATE SCREEN URINE POSITIVE (NEGATIVE); OXYCODONE STAT NEGATIVE (NEGATIVE); PROPOXYPHENE STAT NEGATIVE (NEGATIVE); TRICYCLIC ANTIDEPRESSANTS SCRE NEGATIVE (NEGATIVE)
[2017-11-12] MEDS ORDERED: HEParin (CATH LAB) 0 ML IV ONE (08:48)
[2017-11-12] MEDS ORDERED: ASPIRIN E.C. 81 MG (ECOTRIN) TAB PO SCH (09:00)
[2017-11-12] MEDS ORDERED: FLU QUADRIvalent (5+ YOA) 2018-2019 (AFLURIA) 0.5 ML IM ONE (09:00)
--- NOTE | 2017-11-12 09:05 | Consultation-Cardiology ---
HPI-Cardiology Cardiology Consultation: Date of Consultation 11/12/17 Time Seen by a Provider: 08:50 Date of Admission Attending Physician Dwight Fernandes MD Admitting Physician No,Local Physician Consulting Physician ADE NUÑEZ MD, MA, FACP, FACC, FSCAI, CCDS HPI: Chief Complaint: CC: Chest pain HPI: 57 yo woman with a long cardiac history (see below) who has been having severe chest pain for nearly a week (according to her) yet decided to drive from [place], [place] to [place], [place] to visit with her daughter. Immediately upon arrival here, she came to the ER with continuing cp: midsternal and bilat parasternal, severe, some radiation to shoulder and back, continuous for several days, waxing and waning w/o total resolution, improved only with narcotic analgesics, w/o relation to exertion, associated with some nausea, reminiscent of previous angina that she had several months or years ago ( according to her). Reports severe chest pain while we speak, but does not appear to be in any distress and continues to fall asleep during the interview. Refuses noninvasive eval. Specifically request cardiac cath In addition, has chronic exertional shortness of breath that is slowly progressive. Denies syncope or palp. Has chronic back pain for which she is chronically on high-dose narcotic analgesics. Denies recent fever or chills Review of Systems-Cardiology Review of Systems Constitutional: malaise, tiredness; No weight loss, No weight gain Eyes: No vision change Ears/Nose/Throat: No ear discharge, No nasal drainage, No recent hearing loss Respiratory: As described under HPI Cardiovascular: As described under HPI Gastrointestinal: No constipation, No diarrhea, No nausea, No vomiting Genitourinary: No dysuria, No hematuria Musculoskeletal: back pain (chronic, severe) Skin: No rash, No ulcerations Psychiatric/Neurological: No seizure, No focal weakness, No syncope Hematologic: No bleeding abnormalities All Other Systems Reviewed Negative Unless Noted: Yes HJS-Kynyfi-Mpfimj Hx Patient Social History Alcohol Use: Rarely Uses Recreational Drug Use: No Smoking Status: Current Everyday Smoker Cigaretts per day: 10 Type Used: Cigarettes 2nd Hand Smoke Exposure: Yes Recent Foreign Travel: No Recent Infectious Disease Expo: No Hospitalization with Isolation: Denies Physical Abuse Screen: No Sexual Abuse: No Immunizations Up To Date Tetanus Booster (TDap): Unknown Date of Pneumonia Vaccine: Nov 12, 2012 Past Medical History PMH As described under Assessment. Family Medical History Family Medical History: Does not report fam h/o early CAD or SCD. A daughter is due to have a pacemaker put in (doesn't know any details) Allergies and Home Medications Allergies Coded Allergies: Sulfa (Sulfonamide Antibiotics) (Verified Allergy, Unknown, 11/11/17) haloperidol (Verified Allergy, Unknown, 11/11/17) ketorolac (Verified Allergy, Unknown, 11/11/17) metoclopramide (Verified Allergy, Unknown, 11/11/17) ondansetron (Verified Allergy, Unknown, 11/11/17) prochlorperazine (Verified Allergy, Unknown, 11/11/17) sumatriptan (Verified Allergy, Unknown, 11/11/17) Home Medications Clopidogrel Bisulfate 75 Mg Tablet, Unknown Dose PO DAILY, (Reported) Patient Home Medication List Home Medication List Reviewed: Yes Physical Exam-Cardiology Physical Exam Vital Signs/I&O 11/11/17 11/11/17 11/11/17 11/12/17 22:45 22:45 22:45 00:57 Temp 98.0 97.9 Pulse 85 73 Resp 25 13 B/P (MAP) 155/89 (111) 132/90 (111) Pulse Ox 100 100 100 O2 Delivery Nasal Cannula Nasal Cannula Nasal Cannula Nasal Cannula O2 Flow Rate 2.0 2.0 2.00 2.0 11/12/17 11/12/17 11/12/17 11/12/17 01:00 01:00 01:15 01:19 Temp 97.1 Pulse 70 71 77 Resp 12 10 B/P (MAP) 153/82 (105) 133/76 (95) Pulse Ox 97 97 O2 Delivery Room Air Room Air Room Air 11/12/17 11/12/17 11/12/17 11/12/17 01:30 01:45 01:47 01:47 Pulse 75 74 70 Resp 27 13 B/P (MAP) 122/59 (80) 95/76 (82) Pulse Ox 97 94 96 96 O2 Delivery Room Air Room Air Room Air FiO2 21 11/12/17 11/12/17 11/12/17 11/12/17 02:00 03:00 04:00 04:00 Pulse 66 73 71 Resp 14 12 9 B/P (MAP) 107/91 (96) 107/59 (75) 126/74 (91) Pulse Ox 97 96 97 96 O2 Delivery Room Air Room Air Room Air Room Air 11/12/17 11/12/17 11/12/17 11/12/17 05:00 05:21 06:00 07:00 Pulse 75 75 76 63 Resp 10 9 18 12 B/P (MAP) 105/85 (92) 115/56 (75) 135/71 (92) 157/63 (94) Pulse Ox 93 98 100 100 O2 Delivery Room Air Nasal Cannula Nasal Cannula Nasal Cannula O2 Flow Rate 2.00 2.00 2.00 11/12/17 11/12/17 11/12/17 07:00 08:00 08:15 Temp 98.7 Pulse 63 85 Resp 12 B/P (MAP) O2 Delivery Nasal Cannula Nasal Cannula O2 Flow Rate 2.00 2.00 Capillary Refill : Less Than 3 Seconds Constitutional: AAO x 3; No apparent distress; well-developed, well-nourished HEENT: PERRL, EOMI; No xanthelasmas are seen Neck: carotid bruit (faint, bilat), carotid pulses are 2 + bilaterally, with good upstrokes Respiratory: No accessory muscle use; lungs clear to percussion, other (good bilat air entry, prolonged exp phase) Cardiovascular: regular rate-rhythm, S1 and S2, systolic murmur (soft TAMMY at card base) Gastrointestinal: No tender; soft; No guarding, No rebound; audible bowel sounds Extremities: No clubbing, No cyanosis, No significant edema Neurologic/Psychiatric: oriented x 3, grossly intact (moves all limbs equally) Skin: No rash on exposed areas, No ulcerations on exposed areas Data Review Labs Laboratory Tests 11/11/17 22:45: White Blood Count 7.5, Red Blood Count 3.72L, Hemoglobin 12.1, Hematocrit 35, Mean Corpuscular Volume 95, Mean Corpuscular Hemoglobin 33, Mean Corpuscular Hemoglobin Concent 34, Red Cell Distribution Width 14.7H, Platelet Count 238, Mean Platelet Volume 9.9, Neutrophils (%) (Auto) 55, Lymphocytes (%) (Auto) 34, Monocytes (%) (Auto) 8, Eosinophils (%) (Auto) 4, Basophils (%) (Auto) 0, Neutrophils # (Auto) 4.1, Lymphocytes # (Auto) 2.5, Monocytes # (Auto) 0.6, Eosinophils # (Auto) 0.3, Basophils # (Auto) 0.0, Prothrombin Time 12.2, INR Comment 0.9, Activated Partial Thromboplast Time 32, Sodium Level 138, Potassium Level 3.6, Chloride Level 107, Carbon Dioxide Level 22, Anion Gap 9, Blood Urea Nitrogen 6L, Creatinine 0.83, Estimat Glomerular Filtration Rate > 60 , BUN/Creatinine Ratio 7, Glucose Level 144H, Calcium Level 9.0, Corrected Calcium 9.4, Magnesium Level 2.1, Total Bilirubin 0.2, Aspartate Amino Transf ( AST/SGOT) 23, Alanine Aminotransferase (ALT/SGPT) 21, Alkaline Phosphatase 121, Myoglobin 28.0, Troponin I < 0.30, Total Protein 6.1L, Albumin 3.5 11/12/17 04:50: White Blood Count 5.5, Red Blood Count 3.51L, Hemoglobin 11.5, Hematocrit 34L, Mean Corpuscular Volume 95, Mean Corpuscular Hemoglobin 33, Mean Corpuscular Hemoglobin Concent 34, Red Cell Distribution Width 14.3, Platelet Count 203, Mean Platelet Volume 10.0, Neutrophils (%) (Auto) 47, Lymphocytes (%) (Auto) 39 , Monocytes (%) (Auto) 9, Eosinophils (%) (Auto) 5, Basophils (%) (Auto) 1, Neutrophils # (Auto) 2.6, Lymphocytes # (Auto) 2.1, Monocytes # (Auto) 0.5, Eosinophils # (Auto) 0.3, Basophils # (Auto) 0.0, Sodium Level 141, Potassium Level 4.0, Chloride Level 111H, Carbon Dioxide Level 22, Anion Gap 8, Blood Urea Nitrogen 5L, Creatinine 0.78, Estimat Glomerular Filtration Rate > 60, BUN/ Creatinine Ratio 6, Glucose Level 119H, Calcium Level 8.8, Corrected Calcium 9.4 , Total Bilirubin 0.2, Aspartate Amino Transf (AST/SGOT) 28, Alanine Aminotransferase (ALT/SGPT) 23, Alkaline Phosphatase 121, Troponin I < 0.30, Total Protein 5.8L, Albumin 3.3, Triglycerides Level 456H, Cholesterol Level 224H, LDL Cholesterol Direct 115, VLDL Cholesterol 91H, HDL Cholesterol 27L 11/12/17 08:00: Urine Opiates Screen POSITIVEH, Urine Oxycodone Screen NEGATIVE, Urine Methadone Screen NEGATIVE, Urine Propoxyphene Screen NEGATIVE, Urine Barbiturates Screen NEGATIVE, Ur Tricyclic Antidepressants Screen NEGATIVE, Urine Phencyclidine Screen NEGATIVE, Urine Amphetamines Screen NEGATIVE, Urine Methamphetamines Screen NEGATIVE, Urine Benzodiazepines Screen POSITIVEH, Urine Cocaine Screen NEGATIVE, Urine Cannabinoids Screen NEGATIVE Laboratory Tests 11/11/17 22:45 11/12/17 04:50 A/P-Cardiology Assessment/Admission Diagnosis Chest pain of undetermined etiology. Pt feels this is same as previous angina. No evidence of acute OR CAD. 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 No evidence of OR and chest pain relatively nonspecific, but pt does state this is the same as she has had in the past that required cor interventions. Refuses MPI. Requests cath. We are trying to obtain records of last cath from [place]. Will consider cath. The procedure, risks, benefits, potential complications and alternatives of card cath and possible ad hoc intervention reviewed with her. She understands and wishes to proceed * Echo to eval wall motion and LVEF * Further recs based on hosp course Clinical Quality Measures AMI/AHF: ASA po Prior to arrival: No DVT/VTE Risk/Contraindication: Risk Factor Score Per Nursin RFS Level Per Nursing on Admit: 4+=Very High ADE NUÑEZ MD [facility] CCDS Nov 12, 2017 09:05
[2017-11-12] MEDS ORDERED: CLOP75TA28 PO (09:19)
[2017-11-12] MEDS ORDERED: GLIP5TAB26 PO (09:19)
[2017-11-12] MEDS ORDERED: FURO20TA4 PO (09:19)
[2017-11-12] MEDS ORDERED: HYDR-3820 PO (09:19)
[2017-11-12] MEDS ORDERED: DULO60CA58 PO (09:19)
[2017-11-12] MEDS ORDERED: PROM25TA14 PO (09:19)
[2017-11-12] MEDS ORDERED: RT-ALBUINH INH (09:19)
[2017-11-12] MEDS ORDERED: CARV12.53 PO (09:19)
[2017-11-12] MEDS ORDERED: POTA20TA15 PO (09:19)
[2017-11-12] MEDS ORDERED: CYCL10TA9 PO (09:19)
[2017-11-12] MEDS ORDERED: PANT40TA3 PO (09:19)
[2017-11-12] MEDS ORDERED: DIPH25CA79 PO (09:22)
[2017-11-12] MEDS ORDERED: NAPR220T66 PO (09:22)
[2017-11-12] MEDS ORDERED: meTOproloL SUCCINATE 50 MG (TOPROL XL) TAB PO NR (09:33)
[2017-11-12] MEDS ORDERED: CLOPIDOGREL 75 MG (PLAVIX) TABLET PO NR (09:33)
[2017-11-12] MEDS ORDERED: HYDROcodone/APAP 10 MG/325 MG (LORTAB) TAB PO PRN (14:15)
[2017-11-12] MEDS ORDERED: LIDOCAINE 1% INJ 20 ML 20 ML VIAL ONE (16:35)
[2017-11-12] MEDS ORDERED: NS IV 1000 ML 1,000 ML ONE (16:35)
[2017-11-12] MEDS ORDERED: HEParin (CATH LAB) 2,000 ML IV ONE (16:35)
[2017-11-12] MEDS ORDERED: fentaNYL INJECTION 100 MCG/2 ML AMP ONE (16:36)
[2017-11-12] MEDS ORDERED: MIDAZOLAM 5 MG/5 ML (VERSED) VIAL ONE (16:36)
[2017-11-12] MEDS ORDERED: diphenhydrAMINE 25 MG TAB (BENADRYL) PO ONE (16:36)
[2017-11-12] MEDS ORDERED: PATIENT MAY USE OWN MEDS, ALL PO SCH (18:00)
[2017-11-12] MEDS ORDERED: IBUPROFEN 600 MG (MOTRIN) TAB PO PRN (18:30)
[2017-11-12] MEDS ORDERED: ASPI-999 PO (18:48)
--- NOTE | 2017-11-12 19:27 | CARDIAC CATHETERIZATION ---
DATE OF SERVICE: 11/12/2017 CARDIAC CATHETERIZATION REPORT The patient is a 57-year-old lady with a history of coronary artery bypass surgery in early 1999 and subsequent multiple coronary interventions in [place]. She had come to this hospital with severe chest pains, some of which, according to her, were reminiscent of previous angina. There was no evidence of acute myocardial infarction, but she continued to have severe chest pains and requested cardiac catheterization. This appeared reasonable because of her known cardiac history, continuing risk factors, and symptoms reminiscent of previous angina. Informed consent was obtained. PROCEDURE: She was brought to the cardiac catheterization laboratory in a fasting state. Right groin was prepared and draped in usual sterile fashion. A 1% lidocaine with local anesthesia. Modified Seldinger technique was used to advance a 5-Cameroonian sheath in the right femoral artery, a 5-Cameroonian JL4 catheter for left coronary angiography, a 5-Cameroonian JR4 catheter for right coronary angiography, a 5-Cameroonian pigtail catheter was used for left heart catheterization and left ventricular angiography. Aortic root angiography was also carried out to evaluate for any aortocoronary graft. We used 5-Cameroonian JR4 catheter to engage aortocoronary grafts and also to engage the left internal mammary artery graft to left anterior descending. The catheter was removed. Angiography of the right femoral artery was carried out through the sheath. Mynx was used to achieve hemostasis. She tolerated the procedure well. HEMODYNAMICS: Left ventricular end-diastolic pressure following coronary angiography was 15 mmHg. There is no significant pressure gradient on pullback across the aortic valve. Ascending aortic pressure was 100/62 with a mean of 78 mmHg. LEFT VENTRICULAR ANGIOGRAPHY: Left ventricular angiography was carried out in the right anterior oblique projection. Global left ventricular systolic function is normal. No regional wall motion abnormality is seen. Left ventricular ejection fraction is 65% to 70%. There does not appear to be significant mitral regurgitation. AORTIC ROOT ANGIOGRAPHY: Aortic root angiography did not indicate any significant aortic root or ascending aortic aneurysm or dissection. Aortic leaflets exhibited good excursion. No patent aortocoronary grafts were visualized CORONARY ANGIOGRAPHY: Left main coronary artery does not exhibit significant obstructive disease. Left anterior descending artery has 50% ostial stenosis. Left anterior descending artery is extensively stented in its mid portion and is occluded within the stented portion. This appears to be a chronic occlusion. The left circumflex artery has a widely patent stent in its mid portion. The first obtuse marginal branch of left circumflex artery has a widely patent stent in its proximal portion. The right coronary artery is dominant and has a patent stent in its mid portion. AORTOCORONARY GRAFTS: Two aortocoronary grafts are both occluded at their ostia. One graft appears to be extensively stented, but, as stated, is occluded at its ostium. LEFT INTERNAL MAMMARY ARTERY GRAFT: Left internal mammary artery graft to the distal left anterior descending artery is patent and does not exhibit significant disease. Distal left anterior descending artery is of a small caliber. CONCLUSIONS: 1. Coronary artery disease, primarily consisting of chronic mid vessel occlusion within an extensively stented left anterior descending artery, but the distal LAD is protected by a patent KRISHNAN. There are patent stents in the mid left circumflex, proximal first obtuse marginal and mid right coronary arteries. There are diffuse mild to moderate coronary plaques 2. Two occluded aortocoronary grafts 3. Patent left internal mammary artery graft to distal left anterior descending artery. 4. Normal to hyperdynamic left ventricular systolic function with an ejection fraction of 65% to 70%. 5. No significant mitral regurgitation. 6. Mild elevation of left ventricular end-diastolic pressure. DISCUSSION AND RECOMMENDATIONS: Based on the results of the study and lack of any cardiac enzyme release despite long-lasting episodes of chest pain, her discomfort does not appear to be of cardiac origin. Continuing risk factor modification is advised. Immediate and complete smoking cessation is advised. Medication compliance is advised. 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 Job ID: [id number] DocumentID: [id number] Dictated Date: 11/12/2017 17:52:32 Stretcher Drier Operator Date: 11/12/2017 19:26:27 Dictated By: ADE NUÑEZ MD, MA, FACP, FACC,FSCAI, CCDS MTDD
[2017-11-13] MEDS ORDERED: meTOproloL SUCCINATE 50 MG (TOPROL XL) TAB PO SCH (09:00)
[2017-11-13] MEDS ORDERED: CLOPIDOGREL 75 MG (PLAVIX) TABLET PO SCH (09:00)
--- OUTSIDE RECORDS SUMMARY | 2017-11-13 11:10 | XMS REPORT | Continuity of Care Document ---
Author Author [facility] Organization [facility] Address Unknown Phone Unavailable Allergies Active Description Code Type Severity Reaction Onset Reported/Identified Relationship to Patient Clinical Status Yes haloperidol [id number] Drug Allergy Unknown N/A 11/11/2017 Yes hydromorphone [id number] Drug Allergy Unknown N/A 11/11/2017 Yes ketorolac [id number] Drug Allergy Unknown N/A 11/11/2017 Yes metoclopramide [id number] Drug Allergy Unknown N/A 11/11/2017 Yes morphine [id number] Drug Allergy Unknown N/A 11/11/2017 Yes ondansetron [id number] Drug Allergy Unknown N/A 11/11/2017 Yes prochlorperazine [id number] Drug Allergy Unknown N/A 11/11/2017 Yes Sulfa (Sulfonamide Antibiotics) [id number] Drug Allergy Unknown N/A 2017 Yes sumatriptan [id number] Drug Allergy Unknown N/A 11/11/2017 Medications Medication Packaging Start Date Stop Date [...] ROMERO BARTLETT E876 Hypokalemia 02/18/2017 ROMERO BARTLETT [id number] Nicotine dependence, unspecified, in remission 02/18/2017 ROMERO BARTLETT G8929 Other chronic pain 02/18/2017 ROMERO BARTLETT I119 Hypertensive heart disease without heart failure 02/18/2017 ROMERO BARTLETT I214 Non -ST elevation (NSTEMI) myocardial infarction 02/18/2017 ROMERO BARTLETT I2510 Athscl heart disease of [place] coronary artery w/o ang pctrs 02/18/2017 ROMERO BARTLETT J449 Chronic obstructive pulmonary disease, unspecified 02/18/2017 ROMERO BARTLETT K219 Gastro-esophageal reflux disease without esophagitis 02/18/2017 ROMERO BARTLETT R079 Chest pain, unspecified 02/18/2017 ROMERO BARTLETT Z7902 jail (current) use of antithrombotics/antiplatelets 02/18/2017 ROMERO BARTLETT Z74362 Other learning support assistant (current) drug therapy 02/18/2017 ROMERO BARTLETT Z8674 Personal history of sudden cardiac arrest 02/18/2017 ROMERO BARTLETT Z9119 Patient's noncompliance w ot medical treatment and regimen 02/18/2017 ROMERO BARTLETT Z951 Presence of aortocoronary bypass graft 02/18/2017 ROMERO BARTLETT Z955 Presence of coronary angioplasty implant and graft Procedures Code Description Performed By Performed On [id number] 02/09/2017 Results Test Result Range CBC WITH [...] - 02/06/17 13:40 *GFR EST NON AFR BANGLADESHI 60 mL/min NRG *GRFA EST AFR AMER [...] - 02/07/17 04:20 *GFR EST NON AFR BANGLADESHI 59 mL/min NRG *GRFA EST AFR AMER [...] - 02/08/17 05:03 *GFR EST NON AFR [place] 61 mL/min NRG *GRFA EST AFR AMER [...] - 02/09/17 05:11 *GFR EST NON AFR B[place]ADESHI 53 mL/min NRG *GRFA EST AFR AMER [...] 11/11/17 22:45 Myoglobin, serum 28.0 ng/mL 10.0-92.0 Complete blood count (CBC) with automated white blood cell (WBC) differential - 11/12/17 04:50 Blood leukocytes automated count (number/volume) 5.5 10*3/uL 4.3-11.0 Blood erythrocytes automated count (number/volume) 3.51 10*6/uL 4.35-5.85 Venous blood hemoglobin measurement (mass/volume) 11.5 g/dL 11.5-16.0 Blood hematocrit (volume fraction) 34 % 35-52 Automated erythrocyte mean corpuscular volume 95 [foz_us] 80-99 Automated erythrocyte mean corpuscular hemoglobin (mass per erythrocyte) 33 pg 25-34 Automated erythrocyte mean corpuscular hemoglobin concentration measurement ( mass/volume) 34 g/dL 32-36 Automated erythrocyte distribution width ratio 14.3 % 10.0-14.5 Automated blood platelet count (count/volume) 203 10*3/uL 130-400 Automated blood platelet mean volume measurement 10.0 [foz_us] 7.4-10.4 Automated blood neutrophils/100 leukocytes 47 % 42-75 Automated blood lymphocytes/100 leukocytes 39 % 12-44 Blood monocytes/100 leukocytes 9 % 0-12 Automated blood eosinophils/100 leukocytes 5 % 0-10 Automated blood basophils/100 leukocytes 1 % 0-10 Blood neutrophils automated count (number/volume) 2.6 10*3 1.8-7.8 Blood lymphocytes automated count (number/volume) 2.1 10*3 1.0-4.0 Blood monocytes automated count (number/volume) 0.5 10*3 0.0-1.0 Automated eosinophil count 0.3 10*3/uL 0.0-0.3 Automated blood basophil count (count/volume) 0.0 10*3/uL 0.0-0.1 Comprehensive metabolic panel - 11/12/17 04:50 Serum or plasma sodium measurement (moles/volume) 141 mmol/L 135-145 Serum or plasma potassium measurement (moles/volume) 4.0 mmol/L 3.6-5.0 Serum or plasma chloride measurement (moles/volume) 111 mmol/L 98-107 Carbon dioxide 22 mmol/L 21-32 Serum or plasma anion gap determination (moles/volume) 8 mmol/L 5-14 Serum or plasma urea nitrogen measurement (mass/volume) 5 mg/dL 7-18 Serum or plasma creatinine measurement (mass/volume) 0.78 mg/dL 0.60-1.30 Serum or plasma urea nitrogen/creatinine mass ratio 6 NRG Serum or plasma creatinine measurement with calculation of estimated glomerular filtration rate > NRG Serum or plasma glucose measurement (mass/volume) 119 mg/dL 70-105 Serum or plasma calcium measurement (mass/volume) 8.8 mg/dL 8.5-10.1 Serum or plasma total bilirubin measurement (mass/volume) 0.2 mg/dL 0.1-1.0 Serum or plasma alkaline phosphatase measurement (enzymatic activity/volume) 121 U/L 40-136 Serum or plasma aspartate aminotransferase measurement (enzymatic activity/ volume) 28 U/L 5-34 Serum or plasma alanine aminotransferase measurement (enzymatic activity/volume ) 23 U/L 0-55 Serum or plasma protein measurement (mass/volume) 5.8 g/dL 6.4-8.2 Serum or plasma albumin measurement (mass/volume) 3.3 g/dL 3.2-4.5 CALCIUM CORRECTED 9.4 mg/dL 8.5-10.1 Lipid 1996 panel - 11/12/17 04:50 Serum or plasma triglyceride measurement (mass/volume) 456 mg/dL <150 Serum or plasma cholesterol measurement (mass/volume) 224 mg/dL < 200 Serum or plasma cholesterol in HDL measurement (mass/volume) 27 mg/ dL 40-60 Cholesterol in LDL [mass/volume] in serum or plasma by direct assay 115 mg/dL 1-129 Serum or plasma cholesterol in VLDL measurement (mass/volume) 91 mg/ dL 5-40 Serum or plasma troponin i.cardiac measurement (mass/volume) - 11/12/17 04:50 Serum or plasma troponin i.cardiac measurement (mass/volume) < ng/ mL <0.30 Urine drug screening test - 11/12/17 08:00 Urine phencyclidine detection by screening method NEGATIVE NEGATIVE Urine benzodiazepines detection by screening method POSITIVE NEGATIVE Urine cocaine detection NEGATIVE NEGATIVE Urine amphetamines detection by screening method NEGATIVE NEGATIVE Urine methamphetamine detection by screening method NEGATIVE NEGATIVE Urine cannabinoids detection by screening method NEGATIVE NEGATIVE Urine opiates detection by screening method POSITIVE NEGATIVE Urine barbiturates detection NEGATIVE NEGATIVE Screening urine tricyclic antidepressants detection NEGATIVE NEGATIVE Urine methadone detection by screening method NEGATIVE NEGATIVE Urine oxycodone detection NEGATIVE NEGATIVE Urine propoxyphene detection NEGATIVE NEGATIVE Capillary blood glucose measurement by glucometer (mass/volume) - 11/12/17 11: 12 Capillary blood glucose measurement by glucometer (mass/volume) 284 mg/dL 70-110 Capillary blood glucose measurement by glucometer (mass/volume) - 11/12/17 14: 48 Capillary blood glucose measurement by glucometer (mass/volume) 100 mg/dL 70-110 Encounters ACCT No. Visit Date/Time Discharge Status Pt. Type Provider Facility Loc./Unit Complaint [id number] 02/06/2017 15:40:00 02/09/2017 15:41:55 DIS Outpatient ROMERO BARTLETT <PV2.3.2>Chest pain, unspecified</PV2.3.2><PV2.3.2>CHEST PAIN</ PV2.3.2><PV2.3.2>Non-ST elevation (NSTEMI) myocardial infarction</PV2.3.2>< PV2.3.2>Athscl heart disease of [place] coronary artery w/o ang pctrs</PV2.3.2>< PV2.3.2>Presence of aortocoronary bypass graft</PV2.3.2><PV2.3.2>Presence of coronary angioplasty implant and graft</PV2.3.2><PV2.3.2>Hypertensive heart disease without heart failure</PV2.3.2><PV2.3.2>Type 2 diabetes mellitus without complications</PV2.3.2><PV2.3.2>Chronic obstructive pulmonary disease, unspecified</PV2.3.2><PV2.3.2>Nicotine dependence, unspecified, in remission</ PV2.3.2><PV2.3.2>Patient's noncompliance w oth medical treatment and regimen< /PV2.3.2><PV2.3.2>Other chronic pain</PV2.3.2><PV2.3.2>Personal history of sudden cardiac arrest</PV2.3.2><PV2.3.2>Gastro-esophageal reflux disease without esophagitis</PV2.3.2><PV2.3.2>Anemia in other chronic diseases classified elsewhere</PV2.3.2><PV2.3.2>Hypokalemia</PV2.3.2><PV2.3.2> Hypomagnesemia</PV2.3.2><PV2.3.2>Other learning support assistant (current) drug therapy</PV2.3.2 ><PV2.3.2>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
--- OUTSIDE RECORDS SUMMARY | 2017-11-13 14:59 | XMS REPORT | Continuity of Care Document ---
Author Author [facility] Organization [facility] Address Unknown Phone Unavailable Allergies Active Description Code Type Severity Reaction Onset Reported/Identified Relationship to Patient Clinical Status Yes haloperidol [id number] Drug Allergy Unknown N/A 11/11/2017 Yes hydromorphone [id number] Drug Allergy Unknown N/A 11/11/2017 Yes ketorolac [id number] Drug Allergy Unknown N/A 11/11/2017 Yes metoclopramide [id number] Drug Allergy Unknown N/A 11/11/2017 Yes morphine [id number] Drug Allergy Unknown N/A 11/11/2017 Yes ondansetron [id number] Drug Allergy Unknown N/A 11/11/2017 Yes prochlorperazine [id number] Drug Allergy Unknown N/A 11/11/2017 Yes Sulfa (Sulfonamide Antibiotics) [id number] Drug Allergy Unknown N/A 2017 Yes sumatriptan [id number] Drug Allergy Unknown N/A 11/11/2017 Medications Medication [...] ROMERO BARTLETT E876 Hypokalemia 02/18/2017 ROMERO BARTLETT A62605 Nicotine dependence, unspecified, in remission 02/18/2017 ROMERO BARTLETT G8929 Other chronic pain 02/18/2017 ROMERO BARTLETT I119 Hypertensive heart disease without heart failure 02/18/2017 ROMERO BARTLETT I214 Non -ST elevation (NSTEMI) myocardial infarction 02/18/2017 ROMERO BARTLETT I2510 Athscl heart disease of [place] coronary artery w/o ang pctrs 02/18/2017 ROMERO BARTLETT J449 Chronic obstructive pulmonary disease, unspecified 02/18/2017 ROMERO BARTLETT K219 Gastro-esophageal reflux disease without esophagitis 02/18/2017 ROMERO BARTLETT R079 Chest pain, unspecified 02/18/2017 ROMERO BARTLETT Z7902 correction (current) use of antithrombotics/antiplatelets 02/18/2017 ROMERO BARTLETT M03230 Other emt intermediate (current) drug therapy 02/18/2017 ROMERO BARTLETT Z8674 Personal history of sudden cardiac arrest 02/18/2017 ROMERO BARTLETT Z9119 Patient's noncompliance w ot medical treatment and regimen 02/18/2017 ROMERO BARTLETT Z951 Presence of aortocoronary bypass graft 02/18/2017 ROMERO BARTLETT Z955 Presence of coronary angioplasty implant and graft Procedures Code Description Performed By Performed On [id number] 02/09/2017 Results Test Result Range CBC WITH [...] - 02/06/17 13:40 *GFR EST NON AFR [place] 60 mL/min NRG *GRFA EST AFR AMER [...] - 02/07/17 04:20 *GFR EST NON AFR [place] 59 mL/min NRG *GRFA EST AFR AMER [...] - 02/08/17 05:03 *GFR EST NON AFR [place] 61 mL/min NRG *GRFA EST AFR AMER [...] - 02/09/17 05:11 *GFR EST NON AFR [place] 53 mL/min NRG *GRFA EST AFR AMER [...] Status Pt. Type Provider Facility Loc./Unit Complaint [id number] 02/06/2017 15:40:00 02/09/2017 15:41:55 DIS Outpatient ROMERO BARTLETT <PV2.3.2>Chest pain, unspecified</PV2.3.2><PV2.3.2>CHEST PAIN</ PV2.3.2><PV2.3.2>Non-ST elevation (NSTEMI) myocardial infarction</PV2.3.2>< PV2.3.2>Athscl heart disease of [place] coronary artery w/o ang pctrs</PV2.3.2>< PV2.3.2>Presence of aortocoronary bypass graft</PV2.3.2><PV2.3.2>Presence of coronary angioplasty implant and graft</PV2.3.2><PV2.3.2>Hypertensive heart disease without heart failure</PV2.3.2><PV2.3.2>Type 2 diabetes mellitus without complications</PV2.3.2><PV2.3.2>Chronic obstructive pulmonary disease, unspecified</PV2.3.2><PV2.3.2>Nicotine dependence, unspecified, in remission</ PV2.3.2><PV2.3.2>Patient's noncompliance w oth medical treatment and regimen< /PV2.3.2><PV2.3.2>Other chronic pain</PV2.3.2><PV2.3.2>Personal history of sudden cardiac arrest</PV2.3.2><PV2.3.2>Gastro-esophageal reflux disease without esophagitis</PV2.3.2><PV2.3.2>Anemia in other chronic diseases classified elsewhere</PV2.3.2><PV2.3.2>Hypokalemia</PV2.3.2><PV2.3.2> Hypomagnesemia</PV2.3.2><PV2.3.2>Other emt intermediate (current) drug therapy</PV2.3.2 ><PV2.3.2>superintendent terminal (current) use of antithrombotics/antiplatelets</PV2.3.2> [id number] 11/12/2017 00:28:00 11/12/2017 20:55:00 DIS Inpatient NICHO BANKS, LORENA Rm Via [facility] ICU CHEST PAIN
--- NOTE | 2017-11-13 15:18 | Short Stay Summary-Hospitalist ---
History of Present Illness HPI/Chief Complaint Pt is a 57yoCF with a PMH CAD s/p CABG, DM, COPD, and CHF who presented to ER with CC of chest pain. She is a very poor historian and is falling asleep in the middle of our conversation multiple times. She states her pain started 4 days ago and she decided to stop her as she was driving through town to visit her daughter out of town. She states her pain is in her chest and radiating down her left arm, up both sides of her neck down her back and down her left leg. She states her pain is a 10/10 but quickly falls asleep again after telling me that. She describes her chest pain as a heaviness that makes it hard to breath. She states she is allergic to the medicine for a stress test and has only been able to have caths in the past. Date Seen 11/13/17 Time Seen by a Provider: 07:30 Attending Physician Dwight Fernandes MD PCP No,Local Physician Referring Physician Date of Admission Home Medications & Allergies Home Medications Reviewed patient Home Medication Reconciliation performed by pharmacy medication reconciliations pharmacy technician per diem and/or nursing. Patients Allergies have been reviewed. Allergies Allergies Coded Allergies Sulfa (Sulfonamide Antibiotics) (Verified Allergy, Unknown, 11/11/17) haloperidol (Verified Allergy, Unknown, 11/11/17) ketorolac (Verified Allergy, Unknown, 11/11/17) metoclopramide (Verified Allergy, Unknown, 11/11/17) ondansetron (Verified Allergy, Unknown, 11/11/17) prochlorperazine (Verified Allergy, Unknown, 11/11/17) sumatriptan (Verified Allergy, Unknown, 11/11/17) Past Ahnzqgo-Ytdoyn-Pqfgff Hx Past Med/Social Hx: Reviewed Nursing Past Med/Soc Hx Patient Social History Alcohol Use: Rarely Uses Number of Drinks Today: 0 Recreational Drug Use: No Smoking Status: Current Everyday Smoker Cigaretts per day: 10 Type Used: Cigarettes 2nd Hand Smoke Exposure: Yes Physical Abuse Screen: No Sexual Abuse: No Recent Foreign Travel: No Contact w/other who traveled: No Recent Hopitalizations: No Recent Infectious Disease Expo: No Immunizations Up To Date Tetanus Booster (TDap): Unknown Pediatric: No Date of Pneumonia Vaccine: Nov 12, 2012 Seasonal Allergies Seasonal Allergies: Yes Past Medical History Surgeries: Abdominal, CABG, Coronary Stent, Gallbladder, Hysterectomy Respiratory: COPD Cardiac: Cardiomyopathy, Coronary Artery Disease, Heart Attack, High Cholesterol, Hypertension Neurological: Headaches /Migraines Hysterectomy Gastrointestinal: Gastroesophageal Reflux Musculoskeletal: Fibromyalgia, Chronic Back Pain Endocrine: Diabetes, Non-Insulin dep Psychosocial: Sleep Difficulties, Anxiety History of Blood Disorders: No Family History Reviewed Nursing Family Hx No Pertinent Family Hx Review of Systems Constitutional: No chills, No fever EENTM: No blurred vision, No double vision, No nose congestion, No throat pain Respiratory: No cough, No dyspnea on exertion; short of breath Cardiovascular: chest pain; No edema, No palpitations Gastrointestinal: No abdominal pain, No constipation, No diarrhea; nausea; No vomiting Genitourinary: No dysuria, No frequency Musculoskeletal: back pain; No joint pain, No muscle pain; neck pain Skin: No lesions, No rash Psychiatric/Neurological: Headache; Denies Numbness, Denies Tingling Physical Exam Physical Exam Vital Signs Vital Signs - First Documented 11/12/17 01:47 FiO2 21 Capillary Refill : Less Than 3 Seconds Height, Weight, BMI Height: 5'7.00" Weight: 199lbs. 1.0oz. 90.419758xf; 31.2 BMI Method:Stated General Appearance: No Apparent Distress, WD/WN HEENT: PERRL/EOMI, Moist Mucous Membranes Neck: Non Tender, Supple Respiratory: Lungs Clear, No Respiratory Distress Cardiovascular: Regular Rate, Rhythm, No Murmur Gastrointestinal: Normal Bowel Sounds, Non Tender, Soft Extremity: Normal Capillary Refill, No Calf Tenderness Neurologic/Psychiatric: Alert, Oriented x3, Normal Mood/Affect Skin: Normal Color, Warm/Dry Results Results/Procedures Labs Laboratory Tests 11/11/17 22:45 11/12/17 04:50 Patient resulted labs reviewed. Short Stay Diagnosis Discharge Diagnosis-Short Stay Admission Diagnosis Chest pain Final Discharge Diagnosis Chest pain Conclusion Plan See below Diagnosis/Problems Diagnosis/Problems (1) Chest pain Status: Acute Assessment & Plan: Troponins negative x2 Monitor on telemetry Cardiology consulted, appreciate recs Underwent cardiac cath and no interventions warranted Qualifiers: Qualified Codes: R07.9 - Chest pain, unspecified (2) CAD (coronary artery disease) Status: Chronic Assessment & Plan: Reports h/o of 16 stents and CABG x3 Follows with area intelligence technician in [place] Will request records Qualifiers: Qualified Codes: I25.709 - Atherosclerosis of coronary artery bypass graft(s ), unspecified, with unspecified angina pectoris (3) COPD (chronic obstructive pulmonary disease) Status: Chronic Assessment & Plan: No signs of acute exacerbation MAT protocol Recommend smoking cessation Qualifiers: Qualified Codes: J44.9 - Chronic obstructive pulmonary disease, unspecified (4) Essential (primary) hypertension Assessment & Plan: Well controlled currently Trend (5) Non-insulin dependent type 2 diabetes mellitus Assessment & Plan: fasting blood sugar 119 this AM Trend SSI (6) Chronic narcotic use Assessment & Plan: Is on daily hydrocodone Currently receiving morphine for chest pain Resume home meds when able Clinical Quality Measures AMI/AHF: ASA po Prior to arrival: No DVT/VTE Risk/Contraindication: Risk Factor Score Per Nursin RFS Level Per Nursing on Admit: 4+=Very High ASH GIBBS MD Nov 13, 2017 15:18
== END 2017-11-12 20:55 | disposition home or self-care (01) ==
LOC: ER 22:39 → ICU 22:40 → CATH 22:40 → UNDOADMOB 22:40 → ICU 11-12 00:28 → UNDODISOB 11-12 20:55 → CATH 11-12 20:55
PROVIDERS: ATTEND Internal Medicine
DX: R07.9 Chest pain, unspecified (principal); I25.10 Atherosclerotic heart disease of native coronary artery without angina pectoris; I11.0 Hypertensive heart disease with heart failure; I50.9 Heart failure, unspecified; E11.9 Type 2 diabetes mellitus without complications; J44.9 Chronic obstructive pulmonary disease, unspecified; F17.210 Nicotine dependence, cigarettes, uncomplicated; E78.5 Hyperlipidemia, unspecified; I42.9 Cardiomyopathy, unspecified; I45.10 Unspecified right bundle-branch block; K21.9 Gastro-esophageal reflux disease without esophagitis; M79.7 Fibromyalgia; F41.9 Anxiety disorder, unspecified; G89.4 Chronic pain syndrome; Z79.891 Long term (current) use of opiate analgesic; Z95.1 Presence of aortocoronary bypass graft; Z95.5 Presence of coronary angioplasty implant and graft
CPT/HCPCS: 36415; 71045; 80053; 80061; 80306; 82962; 83735; 83874; 84484; 85025; 85610; 85730; 93005; 93041; 93459; 93567; 94640; 94760; 96374; 96375; 96376

== ENCOUNTER 2017-12-10 09:09 | Emergency (ER) | payer MEDICAID ==
[~2017-12-10] VITALS: Ht 170.2 cm; Wt 88.5 kg
[~2017-12-10 09:09] MED LIST: ASPI-999 PO; CARB100C2 PO; CARV12.53 PO; CLOP75TA28 PO; CLOP75TA69 PO; CYCL10TA9 PO; DIPH25CA79 PO; DULO60CA58 PO; FLEXERAL; FURO20TA4 PO; GLIP5TAB13 PO; GLIP5TAB26 PO; HYDR-3820 PO; NAPR220T66 PO; PANT40TA3 PO; POTA20TA15 PO; PROM25TA14 PO; RT-ALBUINH INH
--- OUTSIDE RECORDS SUMMARY | 2017-12-10 09:45 | XMS REPORT | Continuity of Care Document ---
Author Author [facility] Organization [facility] Address Unknown Phone Unavailable Allergies Active Description Code Type Severity Reaction Onset Reported/Identified Relationship to Patient Clinical Status Yes haloperidol [id number] Drug Allergy Unknown N/A 11/11/2017 Yes hydromorphone [id number] Drug Allergy Unknown N/A 11/11/2017 Yes ketorolac [id number] Drug Allergy Unknown N/A 11/11/2017 Yes metoclopramide [id number] Drug Allergy Unknown N/A 11/11/2017 Yes morphine [id number] Drug Allergy Unknown N/A 11/11/2017 Yes ondansetron [id number] Drug Allergy Unknown N/A 11/11/2017 Yes prochlorperazine [id number] Drug Allergy Unknown N/A 11/11/2017 Yes Sulfa (Sulfonamide Antibiotics) [id number] Drug Allergy Unknown N/A 2017 Yes sumatriptan [id number] Drug Allergy Unknown N/A 11/11/2017 Medications Medication [...] ROMERO BARTLETT E876 Hypokalemia 02/18/2017 ROMERO BARTLETT [id number] Nicotine dependence, unspecified, in remission 02/18/2017 ROMERO BARTLETT G8929 Other chronic pain 02/18/2017 ROMERO BARTLETT I119 Hypertensive heart disease without heart failure 02/18/2017 ROMERO BARTLETT I214 Non -ST elevation (NSTEMI) myocardial infarction 02/18/2017 ROMERO BARTLETT 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 02/18/2017 ROMERO BARTLETT J449 Chronic obstructive pulmonary disease, unspecified 02/18/2017 ROMERO BARTLETT K219 Gastro-esophageal reflux disease without esophagitis 02/18/2017 ROMERO BARTLETT R079 Chest pain, unspecified 02/18/2017 ROMERO BARTLETT 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 02/18/2017 ROMERO BARTLETT [id number] Other roasterman (current) drug therapy 02/18/2017 ROMERO BARTLETT Z8674 Personal history of sudden cardiac arrest 02/18/2017 ROMERO BARTLETT Z9119 Patient's noncompliance w [facility] medical treatment and regimen 02/18/2017 ROMERO BARTLETT Z951 Presence of aortocoronary bypass graft 02/18/2017 ROMERO BARTLETT Z955 Presence of coronary angioplasty implant and graft 11/16/2017 LORENA TORRE MD Ot E11.9 TYPE 2 DIABETES MELLITUS WITHOUT COMPLIC 11/16/2017 LORENA TORRE MD Ot E78.5 HYPERLIPIDEMIA, UNSPECIFIED 11/16/2017 LORENA TORRE MD Ot F17.210 NICOTINE DEPENDENCE, CIGARETTES, UNCOMPL 11/16/2017 LORENA TORRE MD Ot F41.9 ANXIETY DISORDER, UNSPECIFIED 11/16/2017 LORENA TORRE MD Ot G89.4 CHRONIC PAIN SYNDROME 11/16/2017 LORENA TORRE MD Ot I11.0 HYPERTENSIVE HEART DISEASE WITH HEART FA 11/16/2017 LORENA TORRE MD Ot I25.10 ATHSCL HEART DISEASE OF [place] CORONARY 11/16/2017 LORENA TORRE MD Ot I42.9 CARDIOMYOPATHY, UNSPECIFIED 11/16/2017 LORENA TORRE MD Ot I45.10 UNSPECIFIED RIGHT BUNDLE-BRANCH BLOCK 11/16/2017 LORENA TORRE MD Ot I50.9 HEART FAILURE, UNSPECIFIED 11/16/2017 LORENA TORRE MD Ot J44.9 CHRONIC OBSTRUCTIVE PULMONARY DISEASE, U 11/16/2017 LORENA TORRE MD Ot K21.9 GASTRO-ESOPHAGEAL REFLUX DISEASE WITHOUT 11/16/2017 LORENA TORRE MD Ot M79.7 FIBROMYALGIA 11/16/2017 LORENA TORRE MD Ot R07.9 CHEST PAIN, UNSPECIFIED 11/16/2017 LORENA TORRE MD Ot 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 11/16/2017 LORENA TORRE MD Ot Z95.1 PRESENCE OF AORTOCORONARY BYPASS GRAFT 11/16/2017 LORENA TORRE MD Ot Z95.5 PRESENCE OF CORONARY ANGIOPLASTY IMPLANT 11/20/2017 LORENA TORRE MD Ot E11.9 TYPE 2 DIABETES MELLITUS WITHOUT COMPLIC 11/20/2017 LORENA TORRE MD Ot E78.5 HYPERLIPIDEMIA, UNSPECIFIED 11/20/2017 LORENA TORRE MD Ot F17.210 NICOTINE DEPENDENCE, CIGARETTES, UNCOMPL 11/20/2017 LORENA TORRE MD Ot F41.9 ANXIETY DISORDER, UNSPECIFIED 11/20/2017 LORENA TORRE MD Ot G89.4 CHRONIC PAIN SYNDROME 11/20/2017 LORENA TORRE MD Ot I11.0 HYPERTENSIVE HEART DISEASE WITH HEART FA 11/20/2017 LORENA TORRE MD Ot I25.10 ATHSCL HEART DISEASE OF [place] CORONARY 11/20/2017 LORENA TORRE MD Ot I42.9 CARDIOMYOPATHY, UNSPECIFIED 11/20/2017 LORENA TORRE MD Ot I45.10 UNSPECIFIED RIGHT BUNDLE-BRANCH BLOCK 11/20/2017 LORENA TORRE MD Ot I50.9 HEART FAILURE, UNSPECIFIED 11/20/2017 LORENA TORRE MD Ot J44.9 CHRONIC OBSTRUCTIVE PULMONARY DISEASE, U 11/20/2017 LORENA TORRE MD Ot K21.9 GASTRO-ESOPHAGEAL REFLUX DISEASE WITHOUT 11/20/2017 LORENA TORRE MD Ot M79.7 FIBROMYALGIA 11/20/2017 LORENA TORRE MD Ot R07.9 CHEST PAIN, UNSPECIFIED 11/20/2017 LORENA TORRE MD Ot Z79.891 SENIOR CARE (CURRENT) USE OF OPIATE ANALGE 11/20/2017 LORENA TORRE MD Ot Z95.1 PRESENCE OF AORTOCORONARY BYPASS GRAFT 11/20/2017 LORENA TORRE MD Ot Z95.5 PRESENCE OF CORONARY ANGIOPLASTY IMPLANT Procedures Code Description Performed By Performed On [id number] 02/09/2017 Results Test Result Range CBC WITH [...] - 02/06/17 13:40 *GFR EST NON AFR DOMINICAN 60 mL/min NRG *GRFA EST AFR AMER [...] - 02/07/17 04:20 *GFR EST NON AFR [place]IN[place] 59 mL/min NRG *GRFA EST AFR AMER [...] - 02/08/17 05:03 *GFR EST NON AFR [place] 61 mL/min NRG *GRFA EST AFR AMER [...] - 02/09/17 05:11 *GFR EST NON AFR [place]IN[place] 53 mL/min NRG *GRFA EST AFR AMER [...] Status Pt. Type Provider Facility Loc./Unit Complaint [id number] 02/06/2017 15:40:00 02/09/2017 15:41:55 DIS Outpatient ROMERO BARTLETT <PV2.3.2>Chest pain, unspecified</PV2.3.2><PV2.3.2>CHEST PAIN</ PV2.3.2><PV2.3.2>Non-ST elevation (NSTEMI) myocardial infarction</PV2.3.2>< PV2.3.2>Athscl heart disease of [place] coronary artery w/o ang pctrs</PV2.3.2>< PV2.3.2>Presence of aortocoronary bypass graft</PV2.3.2><PV2.3.2>Presence of coronary angioplasty implant and graft</PV2.3.2><PV2.3.2>Hypertensive heart disease without heart failure</PV2.3.2><PV2.3.2>Type 2 diabetes mellitus without complications</PV2.3.2><PV2.3.2>Chronic obstructive pulmonary disease, unspecified</PV2.3.2><PV2.3.2>Nicotine dependence, unspecified, in remission</ PV2.3.2><PV2.3.2>Patient's noncompliance w oth medical treatment and regimen< /PV2.3.2><PV2.3.2>Other chronic pain</PV2.3.2><PV2.3.2>Personal history of sudden cardiac arrest</PV2.3.2><PV2.3.2>Gastro-esophageal reflux disease without esophagitis</PV2.3.2><PV2.3.2>Anemia in other chronic diseases classified elsewhere</PV2.3.2><PV2.3.2>Hypokalemia</PV2.3.2><PV2.3.2> Hypomagnesemia</PV2.3.2><PV2.3.2>Other roasterman (current) drug therapy</PV2.3.2 ><PV2.3.2>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
[2017-12-10 10:05] LABS: BASOPHILS % (AUTO) 0 % (0-10); EOSINOPHILS # (AUTO) 0.2 10^3/uL (0.0-0.3); EOSINOPHILS % (AUTO) 3 % (0-10); HEMATOCRIT 39 % (35-52); HEMOGLOBIN 12.9 G/DL (11.5-16.0); LYMPHOCYTES # (AUTO) 2.2 X 10^3 (1.0-4.0); LYMPHOCYTES % (AUTO) 30 % (12-44); MEAN CORPUSCULAR HEMOGLOBIN 32 PG (25-34); MEAN CORPUSCULAR HGB CONC 33 G/DL (32-36); MEAN CORPUSCULAR VOLUME 96 FL (80-99); MEAN PLATELET VOLUME 9.9 FL (7.4-10.4); MONOCYTES # (AUTO) 0.6 X 10^3 (0.0-1.0); MONOCYTES % (AUTO) 8 % (0-12); NEUTROPHILS # (AUTO) 4.4 X 10^3 (1.8-7.8); NEUTROPHILS % (AUTO) 59 % (42-75); PLATELET COUNT 195 10^3/uL (130-400); RED BLOOD COUNT 4.04 10^6/uL (4.35-5.85); RED CELL DISTRIBUTION WIDTH 14.2 % (10.0-14.5); WHITE BLOOD COUNT 7.6 10^3/uL (4.3-11.0)
--- NOTE | 2017-12-10 10:20 | Diagnostic Imaging Report ---
INDICATION: Chest pain. PA and lateral chest. FINDINGS: Left subclavian Port-A-Cath tip projects over the SVC. There are postop changes from median sternotomy. Heart size and pulmonary vascularity are normal. Lungs are clear. There are no effusions or pneumothoraces. There are coronary stents visible. IMPRESSION: Postsurgical changes in the chest. No acute abnormality seen. Dictated by: Dictated on workstation # [id number]
[2017-12-10 10:23] LABS: ALANINE AMINOTRANSFERASE 14 U/L (0-55); ALBUMIN 3.5 GM/DL (3.2-4.5); ALKALINE PHOSPHATASE 132 U/L (40-136); BILIRUBIN,TOTAL 0.2 MG/DL (0.1-1.0); BUN/CREATININE RATIO 14; CALCIUM 9.1 MG/DL (8.5-10.1); CARBON DIOXIDE 22 MMOL/L (21-32); CHLORIDE 101 MMOL/L (98-107); CREATININE SERUM 1.05 MG/DL (0.60-1.30); GFR ESTIMATED 54; GLUCOSE 237 MG/DL (70-105); MAGNESIUM 2.1 MG/DL (1.8-2.4); SODIUM 134 MMOL/L (135-145); TOTAL PROTEIN 6.3 GM/DL (6.4-8.2)
[2017-12-10 10:25] LABS: INR 0.9 (0.8-1.4); PROTHROMBIN TIME PATIENT 12.3 SEC (12.2-14.7)
[2017-12-10 10:29] LABS: MYOGLOBIN SERUM 17.9 NG/ML (10.0-92.0)
[2017-12-10] MEDS ORDERED: NS IV 1000 ML 1,000 ML IV ONE (10:34)
[2017-12-10] MEDS ORDERED: NS 250 ML (IVPB) BAG IV ONE (10:45)
[2017-12-10] MEDS ORDERED: IOHEXOL 350 MG/ML 150 ML (OMNIPAQUE 350) VIAL IV ONE (10:45)
[2017-12-10] MEDS ORDERED: RECEIVED CONTRAST (Hold Metformin) IV SCH (10:45)
[2017-12-10] MEDS ORDERED: PROMETHAZINE INJ 25 MG/ML (PHENERGAN) AMP IVP ONE (10:45)
[2017-12-10] MEDS ORDERED: fentaNYL INJECTION 100 MCG/2 ML AMP IVP ONE (10:45)
[2017-12-10] MEDS ORDERED: morphine INJ 10 MG/ML 1ML (SYR OR VIAL) IVP ONE ×2 (11:30→12:15)
[2017-12-10] MEDS ORDERED: diphenhydrAMINE 50 MG/ML INJ (BENADRYL) IVP ONE ×2 (12:00→12:45)
--- NOTE | 2017-12-10 14:05 | Diagnostic Imaging Report ---
PROCEDURE: CT angiography of the abdomen and chest with and without contrast. TECHNIQUE: After intravenous administration of contrast, thin section axial CT angiography of the abdomen and chest were obtained. Multiple MIP reformats were provided. INDICATION: Chest pain. No prior studies are available for comparison. CT ANGIOGRAM CHEST: Left chest wall port is in place. The thoracic aorta is normal caliber. No dissection is seen. No periaortic fluid collection is identified. The pulmonary arterial system is without evidence of thromboembolism. No filling defects are seen within the central, lobar or segmental branches. No pericardial or pleural fluid is identified. No axillary lymphadenopathy is seen. There are shotty lymph nodes in the mediastinum. There are mildly prominent lymph nodes in the avril bilaterally, greatest on the right. Solitary node on the right measures approximately 13 mm in diameter. Parenchymal evaluation does show some infiltrate in the superior segment of the right lower lobe. No other infiltrates are seen. There is calcified granuloma in the superior segment as well. CT ANGIO ABDOMEN: No discrete liver mass is identified. The gallbladder appears to be surgically absent. The pancreas and spleen are unremarkable. No adrenal mass is identified. The kidneys are unremarkable. Aorta is normal caliber. No dissection is seen. No central, retroperitoneal or mesenteric lymphadenopathy is seen. The small and large bowel loops are normal caliber without evidence of obstruction. Moderate stool in the colon is noted. There is no ascites. IMPRESSION: 1. No evidence of thoracic or abdominal aortic aneurysm or dissection. 2. No evidence of pulmonary embolism. 3. Mildly prominent lymph nodes in the mediastinum and avril. There are also some calcified lymph nodes and calcific granulomas. Findings may be owing to prior granulomatous exposure. No other significant abnormality is seen. Dictated by: Dictated on workstation # [id number]
[2017-12-10] MEDS ORDERED: oxyCODONE/APAP 5/325MG (PERCOCET 5) TABLET PO ONE (15:00)
[2017-12-10 15:25] LABS: BILIRUBIN,URINE NEGATIVE (NEGATIVE); CLARITY,URINE SLIGHTLY CLOUDY; COLOR,URINE YELLOW; GLUCOSE, URINE (UA) NEGATIVE (NEGATIVE); KETONES,URINE NEGATIVE (NEGATIVE); LEUKOCYTE ESTERASE ,URINE 3+ (NEGATIVE); NITRITE,URINE NEGATIVE (NEGATIVE); PH,URINE 5 (5-9); PROTEIN,URINE 2+ (NEGATIVE); UROBILINOGEN,URINE NORMAL (NORMAL)
[2017-12-10 15:35] LABS: BACTERIA,URINE MODERATE /HPF; SQUAMOUS EPITHELIAL CELL,UR >50 /HPF; WBC,URINE 50-100 /HPF
[2017-12-10] MEDS ORDERED: HYDR-3812 PO (15:56)
[2017-12-10] MEDS ORDERED: AZIT250T12 PO (15:56)
[2017-12-10] MEDS ORDERED: CEFD300C3 PO (15:56)
--- NOTE | 2017-12-10 15:58 | ED General ---
General Chief Complaint: Chest Pain Stated Complaint: CHEST PAIN;BACK PAIN;N/V Nursing Triage Note: ARRIVED VIA AMB ET COMPLAINS OF CHEST PAIN WITH MULTIPLE OTHER COMPLAINTS X2 DAYS. STATES SHE IS HOMELESS AND WAS UNABLE TO COME TO ER UNTIL TODAY. IN ANOTHER CONVERSATION SHE STATES SHE LIVES WITH HER SISTER. PT HAS TAKEN X3 NITRO AND X3 BABY ASPIRIN BEFORE COMING TO THE ER. Nursing Sepsis Screen: No Definite Risk Source of Information: Patient, Old Records Exam Limitations: No Limitations History of Present Illness Date Seen by Provider: Dec 10, 2017 Time Seen by Provider: 09:28 Initial Comments This 49-year-old woman presents to the emergency room with complaints of chest pain that radiates into her back. It has been present consistently for the past 3 days. She took nitroglycerin and aspirin at home which did not help. She took 3 doses of each. Pain radiates into her neck and upper abdomen. She states she got no relief from hydrocodone at home. Patient had a cardiac catheterization performed November 11 which revealed no active disease. Chest pain at that time was felt to be from a noncardiac etiology. On exam patient has some mild tenderness in the epigastrium and the pelvic region. Patient is asking for "a high dose of morphine or Dilaudid". Patient and the significant other with her in the room both appear somewhat somnolent. Patient states she recently moved here from [place] and has not yet established with a primary care provider. Allergies and Home Medications Allergies Coded Allergies: Sulfa (Sulfonamide Antibiotics) (Verified Allergy, Unknown, 11/11/17) haloperidol (Verified Allergy, Unknown, 11/11/17) ketorolac (Verified Allergy, Unknown, 11/11/17) metoclopramide (Verified Allergy, Unknown, 11/11/17) ondansetron (Verified Allergy, Unknown, 11/11/17) prochlorperazine (Verified Allergy, Unknown, 11/11/17) sumatriptan (Verified Allergy, Unknown, 11/11/17) Home Medications Albuterol Sulfate 1 Puff Puff, 2 PUFF INH Q4H PRN for SHORTNESS OF BREATH, ( Reported) Aspirin 81 Mg Tab.chew, 81 MG PO DAILY Prescribed by: ERNESTINA RICE on 11/12/17 3658 Azithromycin 250 Mg Tablet, 250 MG PO UD TAKE 2 TABLETS ON DAY ONE THEN TAKE 1 TABLET DAILY FOR FOUR MORE DAYS Prescribed by: JACKELIN MARINO on 12/10/17 155 Carvedilol 12.5 Mg Tablet, 12.5 MG PO BID, (Reported) Cefdinir 300 Mg Capsule, 300 MG PO BID Prescribed by: JACKELIN MARINO on 12/10/171555 Clopidogrel Bisulfate 75 Mg Tablet, 75 MG PO DAILY, (Reported) Cyclobenzaprine HCl 10 Mg Tablet, 10 MG PO TID, (Reported) Diphenhydramine HCl 25 Mg Capsule, 25-50 MG PO Q6H PRN for ITCHING, (Reported) Duloxetine HCl 60 Mg Capsule.dr, 60 MG PO HS, (Reported) Furosemide 20 Mg Tablet, 20 MG PO DAILY, (Reported) Glipizide 5 Mg Tab.er.24, 5 MG PO DAILY, (Reported) LAST FILLED #90 07-30-17 Hydrocodone/Acetaminophen 1 Each Tablet, 1 TAB PO EVERY 4-6 HOURS PRN for PAIN- MODERATE, (Reported) Hydrocodone/Acetaminophen 1 Each Tablet, 1 EACH PO Q4-6HR PRN for PAIN-MODERATE Prescribed by: JACKELIN MARINO on 12/10/171555 Naproxen Sodium 220 Mg Tablet, 220-440 MG PO Q8H PRN for PAIN-MILD, (Reported) Pantoprazole Sodium 40 Mg Tablet.dr, 40 MG PO DAILY, (Reported) Potassium Chloride 20 Meq Tab.er.prt, 20 MG PO DAILY, (Reported) Promethazine HCl 25 Mg Tablet, 25 MG PO TID PRN for NAUSEA/VOMITING-2ND LINE, ( Reported) Patient Home Medication List Home Medication List Reviewed: Yes Review of Systems Review of Systems Constitutional: no symptoms reported EENTM: no symptoms reported Respiratory: no symptoms reported Cardiovascular: see HPI Gastrointestinal: see HPI Genitourinary: see HPI : No Musculoskeletal: see HPI Skin: no symptoms reported Psychiatric/Neurological: No Symptoms Reported Hematologic/Lymphatic: No Symptoms Reported Immunological/Allergic: no symptoms reported Past Anqtjsl-Tjzvbq-Nhkdfg Hx Patient Social History Alcohol Use: Denies Use Recreational Drug Use: No Smoking Status: Current Everyday Smoker Type Used: Cigarettes 2nd Hand Smoke Exposure: Yes Recent Foreign Travel: No Contact w/Someone Who Travel: No Recent Infectious Disease Expo: No Recent Hopitalizations: No Immunizations Up To Date Tetanus Booster (TDap): Unknown PED Vaccines UTD: No Date of Pneumonia Vaccine: Nov 12, 2012 Seasonal Allergies Seasonal Allergies: Yes Past Medical History Surgeries: Yes Abdominal, CABG, Coronary Stent, Gallbladder, Hysterectomy Respiratory: Yes Sleep Apnea, COPD, Emphysema Cardiac: Yes Cardiomyopathy, Coronary Artery Disease, Heart Attack, High Cholesterol, Hypertension Neurological: Yes Headaches /Migraines [employer]ING [employer] History: Hysterectomy Genitourinary: Yes ("1 kidney just don't work right") Gastrointestinal: Yes Gastroesophageal Reflux Musculoskeletal: Yes Fibromyalgia, Chronic Back Pain Endocrine: Yes Diabetes, Non-Insulin dep HEENT: No Cancer: No Psychosocial: Yes Sleep Difficulties, Anxiety Integumentary: No Blood Disorders: No Family Medical History No Pertinent Family Hx Physical Exam Vital Signs Vital Signs - First Documented 12/10/17 09:10 Temp 98.0 Pulse 79 Resp 16 B/P (MAP) 116/71 (86) Pulse Ox 100 O2 Delivery Room Air Capillary Refill : Less Than 3 Seconds Height, Weight, BMI Height: 5'7.00" Weight: 195lbs. 1.0oz. 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 Skin: Normal Color, Warm/Dry Progress/Results/Core Measures Suspected Sepsis Recent Fever Within 48 Hours: No Infection Criteria Present: None New/Unexplained Altered Menta: No Sepsis Screen: No Definite Risk SIRS Temperature:98.0 Pulse: 79 Respiratory Rate: 16 Laboratory Tests 12/10/17 09:57: White Blood Count 7.6 Blood Pressure 116 /71 Mean: 86 Laboratory Tests 12/10/17 09:57: Creatinine 1.05, INR Comment 0.9, Platelet Count 195, Total Bilirubin 0.2 Results/Orders Lab Results Laboratory Tests Test 12/10/17 09:57 12/10/17 15:15 Range/Units White Blood Count 7.6 4.3-11.0 10^3/uL Red Blood Count 4.04 L 4.35-5.85 10^6/uL Hemoglobin 12.9 11.5-16.0 G/DL Hematocrit 39 35-52 % Mean Corpuscular Volume 96 80-99 FL Mean Corpuscular Hemoglobin 32 25-34 PG Mean Corpuscular Hemoglobin Concent 33 32-36 G/DL Red Cell Distribution Width 14.2 10.0-14.5 % Platelet Count 195 130-400 10^3/uL Mean Platelet Volume 9.9 7.4-10.4 FL Neutrophils (%) (Auto) 59 42-75 % Lymphocytes (%) (Auto) 30 12-44 % Monocytes (%) (Auto) 8 0-12 % Eosinophils (%) (Auto) 3 0-10 % Basophils (%) (Auto) 0 0-10 % Neutrophils # (Auto) 4.4 1.8-7.8 X 10^3 Lymphocytes # (Auto) 2.2 1.0-4.0 X 10^3 Monocytes # (Auto) 0.6 0.0-1.0 X 10^3 Eosinophils # (Auto) 0.2 0.0-0.3 10^3/uL Basophils # (Auto) 0.0 0.0-0.1 10^3/uL Prothrombin Time 12.3 12.2-14.7 SEC INR Comment 0.9 0.8-1.4 Activated Partial Thromboplast Time 28 24-35 SEC D-Dimer 0.45 0.00-0.49 UG/ML Sodium Level 134 L 135-145 MMOL/L Potassium Level 4.0 3.6-5.0 MMOL/L Chloride Level 101 98-107 MMOL/L Carbon Dioxide Level 22 21-32 MMOL/L Anion Gap 11 5-14 MMOL/L Blood Urea Nitrogen 15 7-18 MG/DL Creatinine 1.05 0.60-1.30 MG/DL Estimat Glomerular Filtration Rate 54 BUN/Creatinine Ratio 14 Glucose Level 237 H 70-105 MG/DL Calcium Level 9.1 8.5-10.1 MG/DL Corrected Calcium 9.5 8.5-10.1 MG/DL Magnesium Level 2.1 1.8-2.4 MG/DL Total Bilirubin 0.2 0.1-1.0 MG/DL Aspartate Amino Transf (AST/SGOT) 12 5-34 U/L Alanine Aminotransferase (ALT/SGPT) 14 0-55 U/L Alkaline Phosphatase 132 40-136 U/L Myoglobin 17.9 10.0-92.0 NG/ML Troponin I < 0.30 <0.30 NG/ML Total Protein 6.3 L 6.4-8.2 GM/DL Albumin 3.5 3.2-4.5 GM/DL Urine Color YELLOW Urine Clarity SLIGHTLY CLOUDY Urine pH 5 5-9 Urine Specific [place] 1.010 L 1.016-1.022 Urine Protein 2+ H NEGATIVE Urine Glucose (UA) NEGATIVE NEGATIVE Urine Ketones NEGATIVE NEGATIVE Urine Nitrite NEGATIVE NEGATIVE Urine Bilirubin NEGATIVE NEGATIVE Urine Urobilinogen NORMAL NORMAL MG/DL Urine Leukocyte Esterase 3+ H NEGATIVE Urine RBC (Auto) 1+ H NEGATIVE Urine RBC 2-5 H /HPF Urine WBC 50-100 H /HPF Urine Squamous Epithelial Cells >50 H /HPF Urine Crystals NONE /LPF Urine Bacteria MODERATE H /HPF Urine Casts NONE /LPF Urine Mucus NEGATIVE /LPF Urine Culture Indicated YES My Orders Orders - JACKELIN RODRIGUEZ MD Ekg Tracing (12/10/17 09:12) Cbc With Automated Diff (12/10/17 09:29) Magnesium (12/10/17 09:29) Cardiac Profile 1 (12/10/17 09:29) Comprehensive Metabolic Panel (12/10/17 09:29) Myoglobin Serum (12/10/17 09:29) Protime With Inr (12/10/17 09:29) Partial Thromboplastin Time (12/10/17 09:29) O2 (12/10/17 09:29) Monitor-Rhythm Ecg Trace Only (12/10/17 09:29) Saline Lock/Iv-Start (12/10/17 09:29) Chest Pa/Lat (2 View) (12/10/17 09:29) Fentanyl Injection (Sublimaze Injection (12/10/17 10:45) Promethazine Injection (Phenergan Injec (12/10/17 10:45) Saline Lock/Iv-Start (12/10/17 10:34) Ns Iv 1000 Ml (Sodium Chloride 0.9%) (12/10/17 10:34) Ct Angio Chest/Abd W (12/10/17 10:34) Ua Culture If Indicated (12/10/17 10:35) Iohexol Injection (Omnipaque 350 Mg/Ml 1 (12/10/17 10:45) Ns (Ivpb) (Sodium Chloride 0.9%) (12/10/17 10:45) Contrast Received (Contrast Received) (12/10/17 10:45) Morphine Injection (Morphine Injection (12/10/17 11:30) Diphenhydramine Injection (Benadryl Inje (12/10/17 12:00) Morphine Injection (Morphine Injection (12/10/17 12:15) Fibrin Degradation Products (12/10/17 12:08) Diphenhydramine Injection (Benadryl Inje (12/10/17 12:45) Oxycodone/Apap 5/325mg Tablet (Percocet (12/10/17 15:00) Urine Culture (12/10/17 15:15) Ceftriaxone For Iv Use (Rocephin For I (12/10/17 16:00) Diphenhydramine Tablet (Benadryl Tablet) (12/10/17 16:15) Medications Given in ED Current Medications Medications Dose Ordered Sig/Terri Route Start Time Stop Time Status Last Admin Dose Admin Ceftriaxone Sodium 1000 mg/ Sodium Chloride 50 ml @ 100 mls/hr ONCE ONCE IV 12/10/17 16:00 12/10/17 16:29 DC 12/10/17 16:05 100 MLS/HR Diphenhydramine HCl 12.5 mg ONCE ONCE IVP 12/10/17 12:00 12/10/17 12:01 DC 12/10/17 12:01 12.5 MG Diphenhydramine HCl 12.5 mg ONCE ONCE IVP 12/10/17 12:45 12/10/17 12:46 DC 12/10/17 12:37 12.5 MG Diphenhydramine HCl 25 mg ONCE ONCE PO 12/10/17 16:15 12/10/17 16:16 DC 12/10/17 16:24 25 MG Fentanyl Citrate 50 mcg ONCE ONCE IVP 12/10/17 10:45 12/10/17 10:46 DC 12/10/17 10:42 50 MCG Iohexol 125 ml ONCE ONCE IV 12/10/17 10:45 12/10/17 10:46 DC 12/10/17 13:25 125 ML Morphine Sulfate 5 mg ONCE ONCE IVP 12/10/17 11:30 12/10/17 11:32 DC 12/10/17 11:35 5 MG Morphine Sulfate 5 mg ONCE ONCE IVP 12/10/17 12:15 12/10/17 12:16 DC 12/10/17 12:18 5 MG Oxycodone/ Acetaminophen 1 tab ONCE ONCE PO 12/10/17 15:00 12/10/17 15:01 DC 12/10/17 15:17 1 TAB Promethazine HCl 12.5 mg ONCE ONCE IVP 12/10/17 10:45 12/10/17 10:46 DC 12/10/17 10:44 12.5 MG Sodium Chloride 250 ml ONCE ONCE IV 12/10/17 10:45 12/10/17 10:46 DC 12/10/17 13:25 80 ML Sodium Chloride 1,000 ml @ 0 mls/hr Q0M ONCE IV 12/10/17 10:34 12/10/17 10:36 DC 12/10/17 10:45 1,000 MLS/HR Vital Signs/I&O 12/10/17 12/10/17 09:10 16:30 Temp 98.0 Pulse 79 96 Resp 16 16 B/P (MAP) 116/71 (86) 124/88 (100) Pulse Ox 100 96 O2 Delivery Room Air Room Air Capillary Refill : Less Than 3 Seconds Blood Pressure Mean: 86 Progress Note : Progress Note Workup was relatively unremarkable except for urinary tract infection. Patient was given multiple doses of narcotic pain medications but was persistently asking for "high doses of morphine or Dilaudid" despite being treated already. Patient received a thorough workup which included CT imaging of the chest, abdomen and pelvis. No significant pathology was identified. ECG Initial ECG Impression Date: Dec 10, 2017 Initial ECG Impression Time: 09:14 Initial ECG Rate: 83 Initial ECG Rhythm: Normal Sinus Initial ECG Intervals Right bundle branch block Comment Normal sinus rhythm with no ST elevation or depression. Right bundle branch block. No axis deviation. Diagnostic Imaging Diagonstic Imaging: Xray Plain Films/CT/US/NM/MRI: chest Comments NAME: ADELAADRIENNE MED REC#: [id number] PT STATUS: REG ER : 1960 PHYSICIAN: JACKELIN RODRIGUEZ MD ADMIT DATE: 12/10/17/ER Signed Date of Exam: 12/10/17 CHEST PA/LAT (2 VIEW) INDICATION: Chest pain. PA and lateral chest. FINDINGS: Left subclavian Port-A-Cath tip projects over the SVC. There are postop changes from median sternotomy. Heart size and pulmonary vascularity are normal. Lungs are clear. There are no effusions or pneumothoraces. There are coronary stents visible. IMPRESSION: Postsurgical changes in the chest. No acute abnormality seen. Dictated by: Dictated on workstation # [id number] Dict: 12/10/17 1016 Trans: 12/10/17 1331 Interpreted by: JOVI GOLDSTEIN MD Electronically signed by: JOVI GOLDSTEIN MD 12/10/17 1331 Diagonstic Imaging: CT Plain Films/CT/US/NM/MRI: chest, abdomen, pelvis Comments CT chest, abdomen and pelvis viewed by me and report reviewed. See report below : NAME: ADRIENNE CHAPMAN [facility] REC#: [id number] PT STATUS: REG ER : 1960 PHYSICIAN: JACKELIN RODRIGUEZ MD ADMIT DATE: 12/10/17/ER Signed Date of Exam: 12/10/17 CT ANGIO CHEST/ABD W PROCEDURE: CT angiography of the abdomen and chest with and without contrast. TECHNIQUE: After intravenous administration of contrast, thin section axial CT angiography of the abdomen and chest were obtained. Multiple MIP reformats were provided. INDICATION: Chest pain. No prior studies are available for comparison. CT ANGIOGRAM CHEST: Left chest wall port is in place. The thoracic aorta is normal caliber. No dissection is seen. No periaortic fluid collection is identified. The pulmonary arterial system is without evidence of thromboembolism. No filling defects are seen within the central, lobar or segmental branches. No pericardial or pleural fluid is identified. No axillary lymphadenopathy is seen. There are shotty lymph nodes in the mediastinum. There are mildly prominent lymph nodes in the avril bilaterally, greatest on the right. Solitary node on the right measures approximately 13 mm in diameter. Parenchymal evaluation does show some infiltrate in the superior segment of the right lower lobe. No other infiltrates are seen. There is calcified granuloma in the superior segment as well. CT ANGIO ABDOMEN: No discrete liver mass is identified. The gallbladder appears to be surgically absent. The pancreas and spleen are unremarkable. No adrenal mass is identified. The kidneys are unremarkable. Aorta is normal caliber. No dissection is seen. No central, retroperitoneal or mesenteric lymphadenopathy is seen. The small and large bowel loops are normal caliber without evidence of obstruction. Moderate stool in the colon is noted. There is no ascites. IMPRESSION: 1. No evidence of thoracic or abdominal aortic aneurysm or dissection. 2. No evidence of pulmonary embolism. 3. Mildly prominent lymph nodes in the mediastinum and avril. There are also some calcified lymph nodes and calcific granulomas. Findings may be owing to prior granulomatous exposure. No other significant abnormality is seen. Dictated by: Dictated on workstation # [id number] Dict: 12/10/17 1351 Trans: 12/10/17 1556 Interpreted by: SUNSHINE WEBB MD Electronically signed by: SUNSHINE WEBB MD 12/10/17 1551 Departure Impression Primary Impression: Atypical chest pain Additional Impressions: Lower back pain Qualified Codes: M54.5 - Low back pain; G89.29 - Other chronic pain Acute urinary tract infection Right lower lobe pulmonary infiltrate Thoracic lymphadenopathy Disposition: 01 HOME, SELF-CARE Condition: Improved Departure-Patient Inst. Decision time for Depature: 15:54 Referrals: NO,LOCAL PHYSICIAN (PCP/Family) Primary Care Physician Patient Instructions: Chest Pain (DC), Urinary Tract Infections in Adults Add. 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 Review your urine culture results with a primary care provider next week. You also need to review your CT results with a primary care provider. Your primary care provider may want to repeat CT results after you have completed your antibiotics to ensure the lymph nodes in your chest are stable. Complete your antibiotic as prescribed. Use your pain medications as prescribed. Drink plenty of clear liquids. Return to care if you have worsening symptoms. All discharge instructions reviewed with patient and/or family. Voiced understanding. Scripts Azithromycin (Azithromycin) 250 Mg Tablet 250 MG PO UD, #6 TAB TAKE 2 TABLETS ON DAY ONE THEN TAKE 1 TABLET DAILY FOR FOUR MORE DAYS Prov: JACKELIN RODRIGUEZ MD 12/10/17 Cefdinir (Cefdinir) 300 Mg Capsule 300 MG PO BID, #14 CAP Prov: JACKELIN RODRIGUEZ MD 12/10/17 Hydrocodone/Acetaminophen (Hydrocodone-Acetamin 5-325 mg) 1 Each Tablet 1 EACH PO Q4-6HR PRN for PAIN-MODERATE, #10 TAB Prov: JACKELIN RODRIGUEZ MD 12/10/17 Copy Copies To 1: ADE NUÑEZ MD FACP FACC CCDS JACKELIN RODRIGUEZ MD Dec 10, 2017 15:58
[2017-12-10] MEDS ORDERED: cefTRIAXone FOR IV USE 1,000 MG in NS (IVPB) 50 ML IV ONE (16:00)
[2017-12-10] MEDS ORDERED: diphenhydrAMINE 25 MG TAB (BENADRYL) PO ONE (16:15)
[2017-12-10 16:30] VITALS: BP 124/88
== END 2017-12-10 16:30 | disposition home or self-care (01) ==
LOC: EDUNIT# 09:09 → ER 09:10
DX: R07.9 Chest pain, unspecified (principal); M54.5 Low back pain; N39.0 Urinary tract infection, site not specified; R91.8 Other nonspecific abnormal finding of lung field; R59.0 Localized enlarged lymph nodes; I42.9 Cardiomyopathy, unspecified; I25.10 Atherosclerotic heart disease of native coronary artery without angina pectoris; I25.2 Old myocardial infarction; E78.00 Pure hypercholesterolemia, unspecified; I10 Essential (primary) hypertension; G47.30 Sleep apnea, unspecified; J43.9 Emphysema, unspecified; G43.909 Migraine, unspecified, not intractable, without status migrainosus; K21.9 Gastro-esophageal reflux disease without esophagitis; E11.9 Type 2 diabetes mellitus without complications; F41.9 Anxiety disorder, unspecified; F17.210 Nicotine dependence, cigarettes, uncomplicated; Z95.1 Presence of aortocoronary bypass graft; Z95.5 Presence of coronary angioplasty implant and graft; Z90.710 Acquired absence of both cervix and uterus; Z88.2 Allergy status to sulfonamides; Z88.8 Allergy status to other drugs, medicaments and biological substances; Z88.4 Allergy status to anesthetic agent; Z88.5 Allergy status to narcotic agent; Z79.82 Long term (current) use of aspirin; Z79.51 Long term (current) use of inhaled steroids; Z79.84 Long term (current) use of oral hypoglycemic drugs
CPT/HCPCS: 36415; 71046; 71275; 74175; 80053; 81000; 83735; 83874; 84484; 85025; 85379; 85610; 85730; 87088; 93005; 93041; 96361; 96374; 96375; 96376

== ENCOUNTER 2018-06-25 16:12 | Emergency (ER) | payer MEDICAID ==
[~2018-06-25] VITALS: Ht 170.2 cm; Wt 77.1 kg
[~2018-06-25 16:12] MED LIST changes: +AZIT250T12 PO; +CEFD300C3 PO; +HYDR-3812 PO
--- OUTSIDE RECORDS SUMMARY | 2018-06-25 16:18 | XMS REPORT | Continuity of Care Document ---
Author Organization Unknown Address Unknown Allergies Active Description Code Type Severity Reaction Onset Reported/Identified Relationship to Patient Clinical Status Yes haloperidol [id number] Drug Allergy Unknown N/A 11/11/2017 Yes hydromorphone [id number] Drug Allergy Unknown N/A 11/11/2017 Yes ketorolac [id number] Drug Allergy Unknown N/A 11/11/2017 Yes metoclopramide [id number] Drug Allergy Unknown N/A 11/11/2017 Yes morphine [id number] Drug Allergy Unknown N/A 11/11/2017 Yes ondansetron [id number] Drug Allergy Unknown N/A 11/11/2017 Yes prochlorperazine [id number] Drug Allergy Unknown N/A 11/11/2017 Yes Sulfa (Sulfonamide Antibiotics) [id number] Drug Allergy Unknown N/A 2017 Yes sumatriptan [id number] Drug Allergy Unknown N/A 11/11/2017 Medications Medication [...] ROMERO BARTLETT E876 Hypokalemia 02/18/2017 ROMERO BARTLETT [id number] Nicotine dependence, unspecified, in remission 02/18/2017 ROMERO BARTLETT G8929 Other chronic pain 02/18/2017 ROMERO BARTLETT I119 Hypertensive heart disease without heart failure 02/18/2017 ROMERO BARTLETT I214 Non -ST elevation (NSTEMI) myocardial infarction 02/18/2017 ROMERO BARTLETT 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 02/18/2017 ROMERO BARTLETT J449 Chronic obstructive pulmonary disease, unspecified 02/18/2017 ROMERO BARTLETT K219 Gastro-esophageal reflux disease without esophagitis 02/18/2017 ROMERO BARTLETT R079 Chest pain, unspecified 02/18/2017 ROMERO BARTLETT 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 02/18/2017 ROMERO BARTLETT 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 02/18/2017 ROMERO BARTLETT Z8674 Personal history of sudden cardiac arrest 02/18/2017 ROMERO BARTLETT Z9119 Patient's noncompliance w [facility] medical treatment and regimen 02/18/2017 ROMERO [...] MD Ot I25.10 ATHSCL HEART DISEASE OF [place] CORONARY 11/16/2017 LORENA TORRE MD Ot I42.9 [...] UNSPECIFIED 11/16/2017 LORENA TORRE MD Ot Z79.891 PARENT TRAINER (CURRENT) USE OF OPIATE ANALGE 11/16/2017 LORENA [...] MD Ot I25.10 ATHSCL HEART DISEASE OF [place] CORONARY 11/20/2017 LORENA TORRE MD Ot I42.9 [...] UNSPECIFIED 11/20/2017 LORENA TORRE MD Ot Z79.891 PARENT TRAINER (CURRENT) USE OF OPIATE ANALGE 11/20/2017 LORENA TORRE MD Ot Z95.1 PRESENCE OF AORTOCORONARY BYPASS GRAFT 11/20/2017 LORENA TORRE MD Ot Z95.5 PRESENCE OF CORONARY ANGIOPLASTY IMPLANT 12/10/2017 JACKELIN RODRIGUEZ MD Ot E11.9 TYPE 2 DIABETES MELLITUS WITHOUT COMPLIC 12/10/2017 JACKELIN RODRIGUEZ MD Ot E78.00 PURE HYPERCHOLESTEROLEMIA, UNSPECIFIED 12/10/2017 JACKELIN RODRIGUEZ MD Ot F17.210 NICOTINE DEPENDENCE, CIGARETTES, UNCOMPL 12/10/2017 JACKELIN RODRIGUEZ MD Ot F41.9 ANXIETY DISORDER, UNSPECIFIED 12/10/2017 JACKELIN RODRIGUEZ MD Ot G43.909 MIGRAINE, UNSP, NOT INTRACTABLE, WITHOUT 12/10/2017 JACKELIN RODRIGUEZ MD Ot G47.30 SLEEP APNEA, UNSPECIFIED 12/10/2017 JACKELIN RODRIGUEZ MD Ot I10 ESSENTIAL (PRIMARY) HYPERTENSION 12/10/2017 JACKELIN RODRIGUEZ MD Ot I25.10 ATHSCL HEART DISEASE OF [place] CORONARY 12/10/2017 JACKELIN RODRIGUEZ MD, Ot I25.2 OLD MYOCARDIAL INFARCTION 12/10/2017 JACKELIN RODRIGUEZ MD Ot I42.9 CARDIOMYOPATHY, UNSPECIFIED 12/10/2017 JACKELIN RODRIGUEZ MD, Ot J43.9 EMPHYSEMA, UNSPECIFIED 12/10/2017 JACKELIN RODRIGUEZ MD Ot K21.9 GASTRO-ESOPHAGEAL REFLUX DISEASE WITHOUT 12/10/2017 JACKELIN RODRIGUEZ MD Ot M54.5 LOW BACK PAIN 12/10/2017 JACKELIN RODRIGUEZ MD Ot N39.0 URINARY TRACT INFECTION, SITE NOT SPECIF 12/10/2017 JACKELIN RODRIGUEZ MD Ot R07.9 CHEST PAIN, UNSPECIFIED 12/10/2017 JACKELIN RODRIGUEZ MD Ot R59.0 LOCALIZED ENLARGED LYMPH NODES 12/10/2017 JACKELIN RODRIGUEZ MD Ot R91.8 OTHER NONSPECIFIC ABNORMAL FINDING OF [place] 12/10/2017 JACKELIN RODRIGUEZ MD Ot Z79.51 CUSTODIAL (CURRENT) USE OF INHALED STERO 12/10/2017 JACKELIN RODRIGUEZ MD Ot Z79.82 CUSTODIAL (CURRENT) USE OF ASPIRIN 12/10/2017 JACKELIN RODRIGUEZ MD Ot Z79.84 CUSTODIAL (CURRENT) USE OF ORAL HYPOGLYC 12/10/2017 JACKELIN RODRIGUEZ MD, Ot Z88.2 ALLERGY STATUS TO SULFONAMIDES STATUS 12/10/2017 JACKELIN RODRIGUEZ MD, Ot Z88.4 ALLERGY STATUS TO ANESTHETIC AGENT STATU 12/10/2017 JACKELIN RODRIGUEZ MD, Ot Z88.5 ALLERGY STATUS TO NARCOTIC AGENT STATUS 12/10/2017 JACKELIN RODRIGUEZ MD, Ot Z88.8 ALLERGY STATUS TO OTH DRUG/MEDS/BIOL SUB 12/10/2017 JACKELIN RODRIGUEZ MD, Ot Z90.710 ACQUIRED ABSENCE OF BOTH CERVIX AND UTER 12/10/2017 JACKELIN RODRIGUEZ MD, Ot Z95.1 PRESENCE OF AORTOCORONARY BYPASS GRAFT 12/10/2017 JACKELIN RODRIGUEZ MD, Ot Z95.5 PRESENCE OF CORONARY ANGIOPLASTY IMPLANT Procedures Code Description Performed By Performed On [id number] 02/09/2017 Results Test Result Range CBC WITH [...] - 02/06/17 13:40 *GFR EST NON AFR CYPRIOT 60 mL/min NRG *GRFA EST AFR AMER [...] - 02/07/17 04:20 *GFR EST NON AFR CYPRIOT 59 mL/min NRG *GRFA EST AFR AMER [...] - 02/08/17 05:03 *GFR EST NON AFR CYPRIOT 61 mL/min NRG *GRFA EST AFR AMER [...] - 02/09/17 05:11 *GFR EST NON AFR CYPRIOT 53 mL/min NRG *GRFA EST AFR AMER [...] measurement by glucometer (mass/volume) 100 mg/dL 70-110 Complete blood count (CBC) with automated white blood cell (WBC) differential - 12/10/17 09:57 Blood leukocytes automated count (number/volume) 7.6 10*3/uL 4.3-11.0 Blood erythrocytes automated count (number/volume) 4.04 10*6/uL 4.35-5.85 Venous blood hemoglobin measurement (mass/volume) 12.9 g/dL 11.5-16.0 Blood hematocrit (volume fraction) 39 % 35-52 Automated erythrocyte mean corpuscular volume 96 [foz_us] 80-99 Automated erythrocyte mean corpuscular hemoglobin (mass per erythrocyte) 32 pg 25-34 Automated erythrocyte mean corpuscular hemoglobin concentration measurement ( mass/volume) 33 g/dL 32-36 Automated erythrocyte distribution width ratio 14.2 % 10.0-14.5 Automated blood platelet count (count/volume) 195 10*3/uL 130-400 Automated blood platelet mean volume measurement 9.9 [foz_us] 7.4-10.4 Automated blood neutrophils/100 leukocytes 59 % 42-75 Automated blood lymphocytes/100 leukocytes 30 % 12-44 Blood monocytes/100 leukocytes 8 % 0-12 Automated blood eosinophils/100 leukocytes 3 % 0-10 Automated blood basophils/100 leukocytes 0 % 0-10 Blood neutrophils automated count (number/volume) 4.4 10*3 1.8-7.8 Blood lymphocytes automated count (number/volume) 2.2 10*3 1.0-4.0 Blood monocytes automated count (number/volume) 0.6 10*3 0.0-1.0 Automated eosinophil count 0.2 10*3/uL 0.0-0.3 Automated blood basophil count (count/volume) 0.0 10*3/uL 0.0-0.1 Comprehensive metabolic panel - 12/10/17 09:57 Serum or plasma sodium measurement (moles/volume) 134 mmol/L 135-145 Serum or plasma potassium measurement (moles/volume) 4.0 mmol/L 3.6-5.0 Serum or plasma chloride measurement (moles/volume) 101 mmol/L 98-107 Carbon dioxide 22 mmol/L 21-32 Serum or plasma anion gap determination (moles/volume) 11 mmol/L 5-14 Serum or plasma urea nitrogen measurement (mass/volume) 15 mg/dL 7-18 Serum or plasma creatinine measurement (mass/volume) 1.05 mg/dL 0.60-1.30 Serum or plasma urea nitrogen/creatinine mass ratio 14 NRG Serum or plasma creatinine measurement with calculation of estimated glomerular filtration rate 54 NRG Serum or plasma glucose measurement (mass/volume) 237 mg/dL 70-105 Serum or plasma calcium measurement (mass/volume) 9.1 mg/dL 8.5-10.1 Serum or plasma total bilirubin measurement (mass/volume) 0.2 mg/dL 0.1-1.0 Serum or plasma alkaline phosphatase measurement (enzymatic activity/volume) 132 U/L 40-136 Serum or plasma aspartate aminotransferase measurement (enzymatic activity/ volume) 12 U/L 5-34 Serum or plasma alanine aminotransferase measurement (enzymatic activity/volume ) 14 U/L 0-55 Serum or plasma protein measurement (mass/volume) 6.3 g/dL 6.4-8.2 Serum or plasma albumin measurement (mass/volume) 3.5 g/dL 3.2-4.5 CALCIUM CORRECTED 9.5 mg/dL 8.5-10.1 Magnesium - 12/10/17 09:57 Magnesium 2.1 mg/dL 1.8-2.4 Serum or plasma troponin i.cardiac measurement (mass/volume) - 12/10/17 09:57 Serum or plasma troponin i.cardiac measurement (mass/volume) < ng/ mL <0.30 PT panel in platelet poor plasma by coagulation assay - 12/10/17 09:57 Prothrombin time (PT) in platelet poor plasma by coagulation assay 12.3 s 12.2-14.7 INR in platelet poor plasma or blood by coagulation assay 0.9 0.8-1.4 Activated partial thromboplastin time (aPTT) in platelet poor plasma bycoagulation assay - 12/10/17 09:57 Activated partial thromboplastin time (aPTT) in platelet poor plasma bycoagulation assay 28 s 24-35 Myoglobin, serum - 12/10/17 09:57 Myoglobin, serum 17.9 ng/mL 10.0-92.0 Fibrin D-dimer FEU measurement in platelet poor plasma (mass/volume) - 09:57 Fibrin D-dimer FEU measurement in platelet poor plasma (mass/volume) 0.45 ug/mL 0.00-0.49 Complete urinalysis with reflex to culture - 12/10/17 15:15 Urine color determination YELLOW NRG Urine clarity determination SLIGHTLY CLOUDY NRG Urine pH measurement by test strip 5 5-9 Specific gravity of urine by test strip 1.010 1.016- 1.022 Urine protein assay by test strip, semi-quantitative 2+ NEGATIVE Urine glucose detection by automated test strip NEGATIVE NEGATIVE Erythrocytes detection in urine sediment by light microscopy 1+ NEGATIVE Urine ketones detection by automated test strip NEGATIVE NEGATIVE Urine nitrite detection by test strip NEGATIVE NEGATIVE Urine total bilirubin detection by test strip NEGATIVE NEGATIVE Urine urobilinogen measurement by automated test strip (mass/volume) NORMAL NORMAL Urine leukocyte esterase detection by dipstick 3+ NEGATIVE Automated urine sediment erythrocyte count by microscopy (number/high power field) [HPF] NRG Automated urine sediment leukocyte count by microscopy (number/high power field ) [HPF] NRG Bacteria detection in urine sediment by light microscopy MODERATE NRG Squamous epithelial cells detection in urine sediment by light microscopy >50 NRG Crystals detection in urine sediment by light microscopy NONE NRG Casts detection in urine sediment by light microscopy NONE NRG Mucus detection in urine sediment by light microscopy NEGATIVE NRG Complete urinalysis with reflex to culture YES NRG Bacterial urine culture - 12/10/17 15:15 Bacterial urine culture SEE COMMEN NRG COLONY COUNT . NRG Encounters ACCT No. Visit Date/Time Discharge Status Pt. Type Provider Facility Loc./Unit Complaint [id number] 02/06/2017 15:40:00 02/09/2017 15:41:55 DIS Outpatient ROMERO BARTLETT <PV2.3.2>Chest pain, unspecified</PV2.3.2><PV2.3.2>CHEST PAIN</ PV2.3.2><PV2.3.2>Non-ST elevation (NSTEMI) myocardial infarction</PV2.3.2>< PV2.3.2>Athscl heart disease of [place] coronary artery w/o ang pctrs</PV2.3.2>< PV2.3.2>Presence of aortocoronary bypass graft</PV2.3.2><PV2.3.2>Presence of coronary angioplasty implant and graft</PV2.3.2><PV2.3.2>Hypertensive heart disease without heart failure</PV2.3.2><PV2.3.2>Type 2 diabetes mellitus without complications</PV2.3.2><PV2.3.2>Chronic obstructive pulmonary disease, unspecified</PV2.3.2><PV2.3.2>Nicotine dependence, unspecified, in remission</ PV2.3.2><PV2.3.2>Patient's noncompliance w oth medical treatment and regimen< /PV2.3.2><PV2.3.2>Other chronic pain</PV2.3.2><PV2.3.2>Personal history of sudden cardiac arrest</PV2.3.2><PV2.3.2>Gastro-esophageal reflux disease without esophagitis</PV2.3.2><PV2.3.2>Anemia in other chronic diseases classified elsewhere</PV2.3.2><PV2.3.2>Hypokalemia</PV2.3.2><PV2.3.2> Hypomagnesemia</PV2.3.2><PV2.3.2>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
[2018-06-25] MEDS ORDERED: NS IV 1000 ML 1,000 ML IV ONE (16:37)
[2018-06-25 16:45] LABS: BASOPHILS % (AUTO) 0 % (0-10); EOSINOPHILS # (AUTO) 0.2 10^3/uL (0.0-0.3); EOSINOPHILS % (AUTO) 2 % (0-10); HEMATOCRIT 36 % (35-52); HEMOGLOBIN 11.9 G/DL (11.5-16.0); LYMPHOCYTES # (AUTO) 2.4 X 10^3 (1.0-4.0); LYMPHOCYTES % (AUTO) 28 % (12-44); MEAN CORPUSCULAR HEMOGLOBIN 30 PG (25-34); MEAN CORPUSCULAR HGB CONC 33 G/DL (32-36); MEAN CORPUSCULAR VOLUME 89 FL (80-99); MEAN PLATELET VOLUME 10.3 FL (7.4-10.4); MONOCYTES # (AUTO) 0.5 X 10^3 (0.0-1.0); MONOCYTES % (AUTO) 6 % (0-12); NEUTROPHILS # (AUTO) 5.7 X 10^3 (1.8-7.8); NEUTROPHILS % (AUTO) 65 % (42-75); PLATELET COUNT 312 10^3/uL (130-400); RED CELL DISTRIBUTION WIDTH 14.6 % (10.0-14.5); WHITE BLOOD COUNT 8.9 10^3/uL (4.3-11.0)
[2018-06-25] MEDS ORDERED: SCOPOLAMINE 1.5 MG (TRANSDERM-SCOP) PATCH TD ONE (16:45)
[2018-06-25] MEDS ORDERED: ASPIRIN 81 MG CHEW (CHILDREN'S ASA) PO ONE (16:45)
[2018-06-25] MEDS ORDERED: fentaNYL INJECTION 100 MCG/2 ML AMP IVP ONE (16:45)
[2018-06-25 16:57] LABS: PROTHROMBIN TIME PATIENT 13.2 SEC (12.2-14.7)
[2018-06-25 17:08] LABS: ALANINE AMINOTRANSFERASE 14 U/L (0-55); ALBUMIN 3.7 GM/DL (3.2-4.5); ALKALINE PHOSPHATASE 134 U/L (40-136); AMYLASE 31 U/L (25-125); BILIRUBIN,TOTAL 0.3 MG/DL (0.1-1.0); BUN/CREATININE RATIO 8; CALCIUM 9.1 MG/DL (8.5-10.1); CARBON DIOXIDE 22 MMOL/L (21-32); CHLORIDE 102 MMOL/L (98-107); CREATININE SERUM 1.03 MG/DL (0.60-1.30); GFR ESTIMATED 55; GLUCOSE 274 MG/DL (70-105); LIPASE 42 U/L (8-78); MAGNESIUM 1.8 MG/DL (1.8-2.4); POTASSIUM 3.5 MMOL/L (3.6-5.0); SODIUM 134 MMOL/L (135-145)
--- NOTE | 2018-06-25 17:19 | Diagnostic Imaging Report ---
INDICATION: Chest pain. Upright portable AP view of the chest is obtained with comparison made to study of 12/10/2017. FINDINGS: Overall heart size and pulmonary vascularity are within normal limits. There is continued elevation of the right hemidiaphragm. Left anterior chest wall port remains in stable position without evidence of pneumothorax or other change. IMPRESSION: Continued elevation of the right hemidiaphragm without acute abnormality detected. Dictated by: Dictated on workstation # [id number]
[2018-06-25] MEDS ORDERED: PROMETHAZINE INJ 25 MG/ML (PHENERGAN) AMP ONE (17:22)
[2018-06-25] MEDS ORDERED: morphine INJ 10 MG/ML 1ML (SYR OR VIAL) ONE (17:22)
[2018-06-25] MEDS ORDERED: morphine INJ 10 MG/ML 1ML (SYR OR VIAL) IVP STA (17:23)
[2018-06-25] MEDS ORDERED: PROMETHAZINE INJ 25 MG/ML (PHENERGAN) AMP IVP ONE (17:30)
[2018-06-25] MEDS ORDERED: HOLD METFORMIN - RECEIVED CONTRAST 20 ML VIAL IV SCH (17:45)
[2018-06-25] MEDS ORDERED: IOHEXOL 350 MG/ML 100 ML (OMNIPAQUE 350) VIAL IV ONE (17:45)
[2018-06-25] MEDS ORDERED: CATHETER FLUSH 10 ML SYR IV PRN (17:45)
--- NOTE | 2018-06-25 18:53 | Diagnostic Imaging Report ---
INDICATION: Chest pain and nausea. COMPARISON: CT angio of the chest 12/10/2017. TECHNIQUE: Multiple axial images were obtained to the chest, abdomen and pelvis with IV contrast and 2-dimensional reconstructions. FINDINGS: CT chest: The heart is enlarged. Coronary stents are present. There is no pericardial effusion. There has been prior median sternotomy. There are prominent but stable right hilar lymph nodes. Otherwise, no suspicious lymphadenopathy is seen. Central airways are normal. The lungs demonstrate calcified granuloma in the superior segment of the right lower lobe. Otherwise, lungs are clear. There is no mass, suspicious nodule, or infiltrate. There is no pleural effusion. Osseous structures are stable. There is at least one stable chronic mid thoracic compression fracture. IMPRESSION: 1. No pulmonary embolism or acute aortic pathology. 2. Stable cardiac enlargement without pulmonary edema. 3. No suspicious nodule, mass, or infiltrate within the lungs. CT abdomen and pelvis: The gallbladder is surgically absent. There is appropriate intrahepatic biliary duct dilatation. The enhancement pattern of the liver, spleen, pancreas, adrenal glands, kidneys, heart is grossly normal. There is mild atherosclerosis of the abdominal aorta without evidence of aneurysm or dissection. There is no free air or free fluid. No mesenteric or retroperitoneal lymphadenopathy is seen. There is no solid organ or bowel ischemia. The course and caliber of small bowel is grossly normal. The uterus is surgically absent. Distal ureters and urinary bladder are normal. There is some asymmetric thickening involving the right vaginal wall. Please correlate with speculum examination on a nonemergent basis. There is no hernia. Osseous structures demonstrate stable chronic-appearing compression fractures of T12 and L2. No osseous lesion is seen. IMPRESSION: 1. No acute abnormalities within the abdomen or pelvis. 2. Mild atherosclerosis of the abdominal aorta without aneurysm or dissection. No solid organ or bowel ischemia is seen. 3. Surgically absent gallbladder and uterus. 4. Given history is a pancreatic cancer. However, the enhancement pattern of the pancreas appears normal. There is no obvious mass or lymphadenopathy. No inflammatory process is seen. 5. Asymmetric thickening of the right lateral vaginal wall. Please correlate with speculum exam on a nonemergent basis. This is likely due to rectocele and this may be a possible rectocele. Dictated by: Dictated on workstation # [id number]
--- NOTE | 2018-06-25 19:04 | ED Chest Pain ---
General Chief Complaint: Chest Pain Stated Complaint: CHEST PAIN x4 DAYS;VOMITING Nursing Triage Note: PT AMBULATED TO ROOM 3 PT CO OF CHEST PAIN FOR 4 DAYS AND NAUSEA, PT HAS TAKEN 3 NITRO TODAY, STATES PRESSURE ISNT GOING AWAY W ASA AND NITRO STATES HAS N/V TODAY, PT STATES HURTS THRU TO BACK. PT STATES HAS PANCREATIC CA THAT IS NOT GETTING TREATED AT THIS X Nursing Sepsis Screen: No Definite Risk Source: patient, old records Exam Limitations: no limitations (JACKELIN RODRIGUEZ MD) History of Present Illness Date Seen by Provider: June 25, 2018 Time Seen by Provider: 14:57 Initial Comments This 57-year-old woman with known coronary artery disease status post CABG and stenting presents to the emergency room with chest pain and vomiting for the past 4 days. She reports 3 doses of nitroglycerin at home were not helpful. She also took aspirin 81 mg 3 today. She reports having no primary care provider and no steam table associate. She states she is new to the [facility] and has not established care here yet. She reports associated symptoms of shortness of air and pain radiating into the neck and arms. She describes the pain as squeezing. She also reports having a diagnosis of pancreatic cancer and having pending referrals to doctors in [place] for this. Patient presented here in October with a similar history and had a cardiac catheterization at that time. After angiography, her pain was not felt to be due to cardiac causes. She had a similar presentation again in November of last year and was dismissed with the same conclusion. (JACKELIN RODRIGUEZ MD) Allergies and Home Medications Allergies Coded Allergies: Sulfa (Sulfonamide Antibiotics) (Verified Allergy, Unknown, 11/11/17) haloperidol (Verified Allergy, Unknown, 11/11/17) ketorolac (Verified Allergy, Unknown, 11/11/17) metoclopramide (Verified Allergy, Unknown, 11/11/17) ondansetron (Verified Allergy, Unknown, 11/11/17) prochlorperazine (Verified Allergy, Unknown, 11/11/17) sumatriptan (Verified Allergy, Unknown, 11/11/17) Home Medications Albuterol Sulfate 1 Puff Puff, 2 PUFF INH Q4H PRN for SHORTNESS OF BREATH, ( Reported) Aspirin 81 Mg Tab.chew, 81 MG PO DAILY Prescribed by: ERNESTINA RICE on 11/12/17 184 Azithromycin 250 Mg Tablet, 250 MG PO UD TAKE 2 TABLETS ON DAY ONE THEN TAKE 1 TABLET DAILY FOR FOUR MORE DAYS Prescribed by: JACKELIN MARINO on 12/10/17 155 Carvedilol 12.5 Mg Tablet, 12.5 MG PO BID, (Reported) Cefdinir 300 Mg Capsule, 300 MG PO BID Prescribed by: JACKELIN MARINO on 12/10/171555 Clopidogrel Bisulfate 75 Mg Tablet, 75 MG PO DAILY, (Reported) Cyclobenzaprine HCl 10 Mg Tablet, 10 MG PO TID, (Reported) Diphenhydramine HCl 25 Mg Capsule, 25-50 MG PO Q6H PRN for ITCHING, (Reported) Duloxetine HCl 60 Mg Capsule.dr, 60 MG PO HS, (Reported) Furosemide 20 Mg Tablet, 20 MG PO DAILY, (Reported) Glipizide 5 Mg Tab.er.24, 5 MG PO DAILY, (Reported) LAST FILLED #90 07-30-17 Hydrocodone/Acetaminophen 1 Each Tablet, 1 TAB PO EVERY 4-6 HOURS PRN for PAIN- MODERATE, (Reported) Hydrocodone/Acetaminophen 1 Each Tablet, 1 EACH PO Q4-6HR PRN for PAIN-MODERATE Prescribed by: JACKELIN MARINO on 12/10/171555 Naproxen Sodium 220 Mg Tablet, 220-440 MG PO Q8H PRN for PAIN-MILD, (Reported) Nitrofurantoin Monohyd/M-Cryst 100 Mg Capsule, 100 MG PO BID Prescribed by: KAYLA JUSTICE on 06/25/182010 Pantoprazole Sodium 40 Mg Tablet.dr, 40 MG PO DAILY, (Reported) Potassium Chloride 20 Meq Tab.er.prt, 20 MG PO DAILY, (Reported) Promethazine HCl 25 Mg Tablet, 25 MG PO TID PRN for NAUSEA/VOMITING-2ND LINE, ( Reported) Promethazine HCl 25 Mg Supp.rect, 25 MG RC Q4H Prescribed by: KAYLA JUSTICE on 06/25/182012 Sucralfate 1 Gm Tablet, 1 GM PO QIDACHS Prescribed by: KAYLA JUSTICE on 06/25/182010 Patient Home Medication List Home Medication List Reviewed: Yes (JACKELIN RODRIGUEZ MD) Review of Systems Review of Systems Constitutional: no symptoms reported EENTM: No Symptoms Reported Respiratory: See HPI Cardiovascular: See HPI Gastrointestinal: See HPI Genitourinary: No Symptoms Reported Musculoskeletal: no symptoms reported Skin: no symptoms reported Psychiatric/Neurological: No Symptoms Reported Endocrine: No Symptoms Reported Hematologic/Lymphatic: No Symptoms Reported (JACKELIN RODRIGUEZ MD) Past Ayqhoee-Shntqk-Zswlqa Hx Patient Social History Alcohol Use: Denies Use Recreational Drug Use: No Smoking Status: Current Everyday Smoker Type Used: Cigarettes 2nd Hand Smoke Exposure: Yes Recent Foreign Travel: No Contact w/Someone Who Travel: No Recent Infectious Disease Expo: No Recent Hopitalizations: Yes (LAST MONTH) (JACKELIN RODRIGUEZ MD) Immunizations Up To Date Tetanus Booster (TDap): Unknown PED Vaccines UTD: No Date of Pneumonia Vaccine: Nov 12, 2012 (JACKELIN RODRIGUEZ MD) Seasonal Allergies Seasonal Allergies: Yes (JACKELIN RODRIGUEZ MD) Past Medical History Surgeries: Yes Abdominal, CABG, Coronary Stent, Gallbladder, Hysterectomy Respiratory: Yes Sleep Apnea, COPD, Emphysema Cardiac: Yes Cardiomyopathy, Coronary Artery Disease, Heart Attack, High Cholesterol, Hypertension Neurological: Yes Headaches /Migraines RUMPER History: Hysterectomy Genitourinary: Yes ("1 kidney just don't work right") Gastrointestinal: Yes Gastroesophageal Reflux Musculoskeletal: Yes Fibromyalgia, Chronic Back Pain Endocrine: Yes Diabetes, Non-Insulin dep HEENT: No Cancer: No Psychosocial: Yes Sleep Difficulties, Anxiety Integumentary: No Blood Disorders: No (JACKELIN RODRIGUEZ MD) Cardiac: Yes (RBBB) (KAYLA JUSTICE DO) Family Medical History No Pertinent Family Hx (JACKELIN RODRIGUEZ MD) Physical Exam Vital Signs Vital Signs - First Documented 06/25/18 16:15 Temp 98.4 Pulse 103 Resp 37 B/P (MAP) 152/92 (112) Pulse Ox 100 O2 Delivery Room Air (KAYLA JUSTICE DO) Vital Signs Capillary Refill : Less Than 3 Seconds (JACKELIN RODRIGUEZ MD) Height, Weight, BMI Height: 5'7.00" Weight: 170lbs. 1.0oz. 77.549623gv; 31.2 BMI Method:Stated General Appearance: WD/WN, Mild Distress HEENT: PERRL/EOMI, Normal ENT Inspection, Other (wearing sunglasses) Neck: Normal Inspection Respiratory: Chest Non Tender, Lungs Clear, Normal Breath Sounds, No Accessory Muscle Use, No Respiratory Distress Cardiovascular: Regular Rate, Rhythm, No Edema, No Murmur Gastrointestinal: Normal Bowel Sounds, Soft, Tenderness (mild in the epigastrium and left upper quadrant) Extremity: Normal Inspection, No Pedal Edema Neurologic/Psychiatric: Alert, Oriented x3, No Motor/Sensory Deficits, Normal Mood/Affect Skin: Normal Color, Warm/Dry (JACKELIN RODRIGUEZ MD) Progress/Results/Core Measures Results/Orders Lab Results Laboratory Tests Test 06/25/18 15:35 06/25/18 17:40 06/25/18 19:38 Range/Units White Blood Count 8.9 4.3-11.0 10^3/uL Red Blood Count 4.03 L 4.35-5.85 10^6/uL Hemoglobin 11.9 11.5-16.0 G/DL Hematocrit 36 35-52 % Mean Corpuscular Volume 89 80-99 FL Mean Corpuscular Hemoglobin 30 25-34 PG Mean Corpuscular Hemoglobin Concent 33 32-36 G/DL Red Cell Distribution Width 14.6 H 10.0-14.5 % Platelet Count 312 130-400 10^3/uL Mean Platelet Volume 10.3 7.4-10.4 FL Neutrophils (%) (Auto) 65 42-75 % Lymphocytes (%) (Auto) 28 12-44 % Monocytes (%) (Auto) 6 0-12 % Eosinophils (%) (Auto) 2 0-10 % Basophils (%) (Auto) 0 0-10 % Neutrophils # (Auto) 5.7 1.8-7.8 X 10^3 Lymphocytes # (Auto) 2.4 1.0-4.0 X 10^3 Monocytes # (Auto) 0.5 0.0-1.0 X 10^3 Eosinophils # (Auto) 0.2 0.0-0.3 10^3/uL Basophils # (Auto) 0.0 0.0-0.1 10^3/uL Prothrombin Time 13.2 12.2-14.7 SEC INR Comment 1.0 0.8-1.4 Activated Partial Thromboplast Time 95 H 24-35 SEC D-Dimer 0.94 H 0.00-0.49 UG/ML Sodium Level 134 L 135-145 MMOL/L Potassium Level 3.5 L 3.6-5.0 MMOL/L Chloride Level 102 98-107 MMOL/L Carbon Dioxide Level 22 21-32 MMOL/L Anion Gap 10 5-14 MMOL/L Blood Urea Nitrogen 8 7-18 MG/DL Creatinine 1.03 0.60-1.30 MG/DL Estimat Glomerular Filtration Rate 55 BUN/Creatinine Ratio 8 Glucose Level 274 H 70-105 MG/DL Calcium Level 9.1 8.5-10.1 MG/DL Corrected Calcium 9.3 8.5-10.1 MG/DL Magnesium Level 1.8 1.8-2.4 MG/DL Total Bilirubin 0.3 0.1-1.0 MG/DL Aspartate Amino Transf (AST/SGOT) 12 5-34 U/L Alanine Aminotransferase (ALT/SGPT) 14 0-55 U/L Alkaline Phosphatase 134 40-136 U/L Myoglobin 31.2 10.0-92.0 NG/ML Troponin I < 0.028 < 0.028 <0.028 NG/ML B-Type Natriuretic Peptide 21.1 <100.0 PG/ML Total Protein 7.0 6.4-8.2 GM/DL Albumin 3.7 3.2-4.5 GM/DL Amylase Level 31 25-125 U/L Lipase 42 8-78 U/L Urine Color YELLOW Urine Clarity CLEAR Urine pH 6 5-9 Urine Specific [place] 1.010 L 1.016-1.022 Urine Protein NEGATIVE NEGATIVE Urine Glucose (UA) 1+ H NEGATIVE Urine Ketones NEGATIVE NEGATIVE Urine Nitrite NEGATIVE NEGATIVE Urine Bilirubin NEGATIVE NEGATIVE Urine Urobilinogen NORMAL NORMAL MG/DL Urine Leukocyte Esterase 2+ H NEGATIVE Urine RBC (Auto) NEGATIVE NEGATIVE Urine RBC NONE /HPF Urine WBC 5-10 H /HPF Urine Squamous Epithelial Cells NONE /HPF Urine Crystals NONE /LPF Urine Bacteria NEGATIVE /HPF Urine Casts NONE /LPF Urine Mucus NEGATIVE /LPF Urine Yeast FEW H /HPF Urine Culture Indicated YES Urine Opiates Screen POSITIVE H NEGATIVE Urine Oxycodone Screen NEGATIVE NEGATIVE Urine Methadone Screen NEGATIVE NEGATIVE Urine Propoxyphene Screen NEGATIVE NEGATIVE Urine Barbiturates Screen NEGATIVE NEGATIVE Ur Tricyclic Antidepressants Screen NEGATIVE NEGATIVE Urine Phencyclidine Screen NEGATIVE NEGATIVE Urine Amphetamines Screen NEGATIVE NEGATIVE Urine Methamphetamines Screen NEGATIVE NEGATIVE Urine Benzodiazepines Screen NEGATIVE NEGATIVE Urine Cocaine Screen NEGATIVE NEGATIVE Urine Cannabinoids Screen NEGATIVE NEGATIVE (KAYLA JUSTICE DO) My Orders Orders - KAYLA JUSTICE DO Drug Screen Stat (Urine) (06/25/18 19:48) Ua Culture If Indicated (06/25/18 19:48) Urine Culture (06/25/18 17:40) (KAYLA JUSTICE DO) Medications Given in ED Current Medications Medications Dose Ordered Sig/Terri Route Start Time Stop Time Status Last Admin Dose Admin Al Hydrox/Mg Hydrox/Simethicone 30 ml ONCE ONCE PO 06/25/18 19:30 06/25/18 19:31 DC 06/25/18 19:27 30 ML Aspirin 81 mg ONCE ONCE PO 06/25/18 16:45 06/25/18 16:46 DC 06/25/18 16:54 81 MG Fentanyl Citrate 50 mcg ONCE ONCE IVP 06/25/18 16:45 06/25/18 16:46 DC 06/25/18 16:54 50 MCG Iohexol 100 ml ONCE ONCE IV 06/25/18 17:45 06/25/18 17:46 DC 06/25/18 18:13 180 ML Lidocaine HCl 15 ml ONCE ONCE PO 06/25/18 19:30 06/25/18 19:31 DC 06/25/18 19:27 15 ML Promethazine HCl 25 mg ONCE ONCE IVP 06/25/18 17:30 06/25/18 17:31 DC 06/25/18 17:27 25 MG Scopolamine 1.5 mg ONCE ONCE TD 06/25/18 16:45 06/25/18 16:46 DC 06/25/18 16:55 1.5 MG Sodium Chloride 10 ml NEEDED PRN IV 06/25/18 17:45 06/25/18 18:13 10 ML Sodium Chloride 1,000 ml @ 0 mls/hr Q0M ONCE IV 06/25/18 16:37 06/25/18 16:41 DC 06/25/18 16:54 1,000 MLS/HR (KAYLA JUSTICE DO) Vital Signs/I&O 06/25/18 06/25/18 16:15 16:15 Temp 98.4 Pulse 103 Resp 37 B/P (MAP) 152/92 (112) Pulse Ox 100 O2 Delivery Room Air (KAYLA JUSTICE DO) Blood Pressure Mean: 112 Progress Progress Note #1: Time: 19:00 Progress Note Chest pain workup was unremarkable with the exception of elevated d-dimer. Given patient's stated history of pancreatic cancer, CT angiogram of the chest and non-angiogram CT with contrast of the abdomen and pelvis was obtained. Other than an incidental finding of vaginal wall thickening, there were no acute findings noted. Additionally, there was no evidence of pancreatic cancer on the CT scan. I discussed this case with Dr. Varela. We reviewed angiography results from the heart catheterization performed in October of last year. Based on those results, he recommends a 3 hour troponin rule out. If this is normal, she may follow up with her primary steam table associate and primary care provider in [place]. Progress Note #2: Time: 19:10 Progress Note Care of this patient is being transitioned to Dr. Justice with plan of care communicated as above. We will trial a GI cocktail for treatment of pain. I have stressed to the patient the need for continued follow-up with the same providers. I also asked the patient about any recent use of opioids. She was dismissed on September with me about a hydrocodone prescription she received recently. She also previously had been seeing Dr. Hendrix, a aircraft painter apprentice. She reports she was dismissed from his care because she did not have opioids in her urine when screened while under his care. (JACKELIN RODRIGUEZ MD) Progress Note : Progress Note 1930--ASSUMED CARE FROM DR. RODRIGUEZ, REPEAT EKG AND TROPONIN PENDING. PT HAS BEEN GIVEN GI COCKTAIL PT CLAIMS NO IMPROVEMENT WITH GI COCKTAIL DISCUSSED REPEAT EKG AND TROPONIN RESULTS WITH PT AND REVIEWED THE ABOVE DISCUSSION WITH PT PT REPEATEDLY WANTING NARCOTICS, CLAIMS NOW SHE NEEDS IT FOR HER CHRONIC BACK PAIN, AND DOES NOT MENTION ANY CHEST PAIN TO ME AT ANY TIME PT ADVISED THAT I WOULD NOT BE GIVING HER ANY NARCOTICS PT CLAIMS SHE RAN OUT OF HER PAIN MEDICATION --ADVISED THAT SHE WOULD NEED TO FOLLOW UP WITH HER REGULAR DR IN [place] FOR FURTHER MEDICATIONS FOR PAIN PT THEN BECAME BELLIGERENT AND RIPPED OUT HER PORT ACCESS AND RIPPED OFF MONITOR LEADS, ETC. AND WANTING TO LEAVE PT DOES NOT APPEAR TO BE GILDA (KAYLA JUSTICE DO) Initial ECG Impression Date: June 25, 2018 Initial ECG Impression Time: 14:57 Initial ECG Rate: 56 Initial ECG Rhythm: Normal Sinus Initial ECG Intervals: Normal Initial ECG Intervals Right bundle branch block (JACKELIN RODRIGUEZ MD) EKG : EKG Time: 19:27 Rate: 83 Rhythm: Normal Sinus (RBBB) ECG Comparisson: Unchanged (KAYLA JUSTICE DO) Diagnostic Imaging Diagonstic Imaging: Xray Plain Films/CT/US/NM/MRI: chest Comments Chest x-ray viewed by me and report reviewed. See report below: NAME: ADRIENNE CHAPMAN [employer] REC#: [id number] PT STATUS: REG ER : 1960 PHYSICIAN: RODRIGO NOLASCO APRN ADMIT DATE: 06/25/18/ER Draft Date of Exam:06/25/18 CHEST 1 VIEW, AP/PA ONLY INDICATION: Chest pain. Upright portable AP view of the chest is obtained with comparison made to study of 12/10/2017. FINDINGS: Overall heart size and pulmonary vascularity are within normal limits. There is continued elevation of the right hemidiaphragm. Left anterior chest wall port remains in stable position without evidence of pneumothorax or other change. IMPRESSION: Continued elevation of the right hemidiaphragm without acute abnormality detected. Dictated on workstation # [id number] Dict: 06/25/18 1716 Trans: 06/25/18 1718 [id number] Interpreted by: MERLYN BONILLA MD Diagonstic Imaging: CT Plain Films/CT/US/NM/MRI: chest, abdomen, pelvis Comments CT chest, abdomen and pelvis viewed by me and report reviewed. See report below : NAME: ADRIENNE CHAPMAN [employer] [facility] REC#: [id number] PT STATUS: REG ER : 1960 PHYSICIAN: JACKELIN RODRIGUEZ MD ADMIT DATE: 06/25/18/ER Draft Date of Exam:06/25/18 CT DOMENICO CHEST/NOANG ABD-PELV W INDICATION: Chest pain and nausea. COMPARISON: CT angio of the chest 12/10/2017. TECHNIQUE: Multiple axial images were obtained to the chest, abdomen and pelvis with IV contrast and 2-dimensional reconstructions. FINDINGS: CT chest: The heart is enlarged. Coronary stents are present. There is no pericardial effusion. There has been prior median sternotomy. There are prominent but stable right hilar lymph nodes. Otherwise, no suspicious lymphadenopathy is seen. Central airways are normal. The lungs demonstrate calcified granuloma in the superior segment of the right lower lobe. Otherwise, lungs are clear. There is no mass, suspicious nodule, or infiltrate. There is no pleural effusion. Osseous structures are stable. There is at least one stable chronic mid thoracic compression fracture. IMPRESSION: 1. No pulmonary embolism or acute aortic pathology. 2. Stable cardiac enlargement without pulmonary edema. 3. No suspicious nodule, mass, or infiltrate within the lungs. CT abdomen and pelvis: The gallbladder is surgically absent. There is appropriate intrahepatic biliary duct dilatation. The enhancement pattern of the liver, spleen, pancreas, adrenal glands, kidneys, heart is grossly normal. There is mild atherosclerosis of the abdominal aorta without evidence of aneurysm or dissection. There is no free air or free fluid. No mesenteric or retroperitoneal lymphadenopathy is seen. There is no solid organ or bowel ischemia. The course and caliber of small bowel is grossly normal. The uterus is surgically absent. Distal ureters and urinary bladder are normal. There is some asymmetric thickening involving the right vaginal wall. Please correlate with speculum examination on a nonemergent basis. There is no hernia. Osseous structures demonstrate stable chronic-appearing compression fractures of T12 and L2. No osseous lesion is seen. IMPRESSION: 1. No acute abnormalities within the abdomen or pelvis. 2. Mild atherosclerosis of the abdominal aorta without aneurysm or dissection. No solid organ or bowel ischemia is seen. 3. Surgically absent gallbladder and uterus. 4. Given history is a pancreatic cancer. However, the enhancement pattern of the pancreas appears normal. There is no obvious mass or lymphadenopathy. No inflammatory process is seen. 5. Asymmetric thickening of the right lateral vaginal wall. Please correlate with speculum exam on a nonemergent basis. This is likely due to rectocele and this may be a possible rectocele. Dictated on workstation # [id number] Dict: 06/25/18 1835 Trans: 06/25/18 1852 [facility] [id number] Interpreted by: GRETA VELAZQUEZ (JACKELIN RODRIGUEZ MD) Departure Impression Primary Impression: Chest pain Qualified Codes: R07.9 - Chest pain, unspecified Additional Impressions: Nausea and vomiting Qualified Codes: R11.2 - Nausea with vomiting, unspecified Abnormal CT scan, pelvis UTI (urinary tract infection) Disposition: 01 HOME, SELF-CARE Condition: Improved Departure-Patient Inst. Referrals: NO,LOCAL PHYSICIAN (PCP/Family) Primary Care Physician Patient Instructions: Chest Pain (DC), Nausea and Vomiting, Adult (DC), Urinary Tract Infection, Adult (DC) Add. Discharge Instructions: Follow-up with your established primary care provider and your established steam table associate as soon as possible. If you're transferring care to another provider or another town, please do this in an organized fashion and ask your current providers to transfer records to your new providers. There was an incidental finding of vaginal wall thickening on your CT scan. A pelvic exam to be performed by your primary care provider or aquatic scientist was recommended by the radiologist. Please arrange this as soon as possible. Return to care if you have worsening symptoms. All discharge instructions reviewed with patient and/or family. Voiced understanding. Scripts Promethazine HCl (Phenergan) 25 Mg Supp.rect 25 MG RC Q4H for Nausea/Vomiting, #10 SUPP.RECT Prov: KAYLA JUSTICE DO 06/25/18 Sucralfate (Carafate) 1 Gm Tablet 1 GM PO QIDACHS, #60 TAB Prov: KAYLA JUSTICE DO 06/25/18 Nitrofurantoin Monohyd/M-Cryst (Macrobid 100 mg Capsule) 100 Mg Capsule 100 MG PO BID, #20 CAP Prov: KAYLA JUSTICE DO 06/25/18 JACKELIN RODRIGUEZ MD June 25, 2018 19:04 KAYLA JUSTICE DO June 25, 2018 19:43
[2018-06-25] MEDS ORDERED: LIDOCAINE 2% VISCOUS 15 ML UDC PO ONE (19:30)
[2018-06-25] MEDS ORDERED: ANTACID SUSP 30 ML UDC (MYLANTA) PO ONE (19:30)
[2018-06-25 19:52] LABS: BILIRUBIN,URINE NEGATIVE (NEGATIVE); CLARITY,URINE CLEAR; COLOR,URINE YELLOW; GLUCOSE, URINE (UA) 1+ (NEGATIVE); KETONES,URINE NEGATIVE (NEGATIVE); LEUKOCYTE ESTERASE ,URINE 2+ (NEGATIVE); NITRITE,URINE NEGATIVE (NEGATIVE); PH,URINE 6 (5-9); PROTEIN,URINE NEGATIVE (NEGATIVE); UROBILINOGEN,URINE NORMAL (NORMAL)
[2018-06-25 20:03] LABS: BACTERIA,URINE NEGATIVE /HPF; YEAST,URINE FEW /HPF
[2018-06-25 20:05] LABS: AMPHETAMINE SCREEN, URINE NEGATIVE (NEGATIVE); BARBITURATE SCREEN URINE NEGATIVE (NEGATIVE); BENZODIAZEPINES SCREEN URINE NEGATIVE (NEGATIVE); CANNABINOID SCREEN, URINE NEGATIVE (NEGATIVE); COCAINE SCREEN URINE NEGATIVE (NEGATIVE); METHADONE STAT NEGATIVE (NEGATIVE); METHAMPHETAMINE SCREEN URINE S NEGATIVE (NEGATIVE); OPIATE SCREEN URINE POSITIVE (NEGATIVE); OXYCODONE STAT NEGATIVE (NEGATIVE); PROPOXYPHENE STAT NEGATIVE (NEGATIVE); TRICYCLIC ANTIDEPRESSANTS SCRE NEGATIVE (NEGATIVE)
--- NOTE | 2018-06-25 20:09 | NUR ---
erp notified of patients request for pain/nausea medications.
[2018-06-25] MEDS ORDERED: SUCR1TAB36 PO (20:11)
[2018-06-25] MEDS ORDERED: NITR-65 PO (20:11)
[2018-06-25] MEDS ORDERED: PROM25SU43 RC (20:13)
[2018-06-25 20:28] VITALS: BP 135/80
== END 2018-06-25 20:28 | disposition home or self-care (01) ==
LOC: EDUNIT# 16:12 → ER 16:13
DX: R07.9 Chest pain, unspecified (principal); N39.0 Urinary tract infection, site not specified; R93.5 Abnormal findings on diagnostic imaging of other abdominal regions, including retroperitoneum; I25.10 Atherosclerotic heart disease of native coronary artery without angina pectoris; J43.9 Emphysema, unspecified; G47.00 Insomnia, unspecified; I42.9 Cardiomyopathy, unspecified; I25.2 Old myocardial infarction; I10 Essential (primary) hypertension; G43.909 Migraine, unspecified, not intractable, without status migrainosus; E78.00 Pure hypercholesterolemia, unspecified; K21.9 Gastro-esophageal reflux disease without esophagitis; M79.7 Fibromyalgia; E11.9 Type 2 diabetes mellitus without complications; F41.9 Anxiety disorder, unspecified; F17.210 Nicotine dependence, cigarettes, uncomplicated; Z95.1 Presence of aortocoronary bypass graft; Z85.07 Personal history of malignant neoplasm of pancreas; Z95.5 Presence of coronary angioplasty implant and graft; Z90.710 Acquired absence of both cervix and uterus; Z88.2 Allergy status to sulfonamides; Z88.4 Allergy status to anesthetic agent; Z88.8 Allergy status to other drugs, medicaments and biological substances; Z79.82 Long term (current) use of aspirin; Z79.4 Long term (current) use of insulin; Z79.02 Long term (current) use of antithrombotics/antiplatelets
CPT/HCPCS: 36415; 71045; 71275; 74177; 80053; 80306; 81000; 82150; 83690; 83735; 83874; 83880; 84484; 85025; 85379; 85610; 85730; 87088; 93005; 93041